=== PATIENT | female | born 1950 | race Two or more races ===

== ENCOUNTER 2023-07-14 13:51 | Inpatient (IN) | payer OTHER, MEDICAID ==
[~2023-07-14] VITALS: Ht 162.6 cm; Wt 71.7 kg
[2023-07-14 14:25] VITALS: PULSE 76; RESP 16; O2SAT 95
[2023-07-14 14:48] LABS: Basophils # (auto) 0 10 ^3/uL (0-0.2); Basophils % (auto) 0.4 % (0.0-2.0); Eosinophils # (auto) 0 10 ^3/uL (0-0.8); Eosinophils % (auto) 0.3 % (0.0-7.0); Hemoglobin 14.4 g/dL (12.2-16.2); Lymphocytes # (auto) 2.1 10 ^3/uL (0.4-5.4); Lymphocytes % (auto) 21.6 % (10.0-50.0); Mean Corpuscular Hemoglobin 30.4 pg (28.0-32.0); Mean Corpuscular Hgb Conc. 33.5 g/dL (32.0-36.0); Mean Corpuscular Volume 90.9 fL (80.0-100.0); Monocytes # (auto) 0.7 10 ^3/uL (0-1.3); Monocytes % (auto) 6.7 % (0.0-12.0); Red Blood Cells 4.73 10^6/uL (4.0-5.20); Red Cell Distribution Width 13.5 % (11.8-14.3); White Blood Cell 9.9 10^3/uL (4.4-10.8)
[2023-07-14] MEDS ORDERED: IOHEXOL 350 MG/ML 100ML IJ ONE ×2 (14:51→15:32)
[2023-07-14] MEDS ORDERED: ATORVASTATIN 20 MG TAB PO ONE (15:00)
[2023-07-14] MEDS ORDERED: ASPirin 325 MG TAB PO ONE (15:00)
[2023-07-14 15:07] LABS: Alanine Aminotransferase 24 U/L (7-40); Albumin 4.5 g/dL (3.2-4.8); Alkaline Phosphatase 115 U/L (46-116); Anion Gap 10 (5-15); Aspartate Aminotransferase 20 U/L (13-40); BUN/Creatinine Ratio 18.7 (10.0-20.0); Bilirubin, Total 0.5 mg/dL (0.2-1.0); Blood Urea Nitrogen 17 mg/dL (9-23); Calcium 9.4 mg/dL (8.7-10.4); Carbon Dioxide 23 mmol/L (20-30); Chloride 94 mmol/L (98-107); Glucose 268 mg/dL (74-106); Magnesium 1.9 mg/dL (1.6-2.6); Potassium 4.9 mmol/L (3.5-5.1); Sodium 127 mmol/L (136-145); Total Protein 7.2 g/dL (5.7-8.2)
[2023-07-14 15:35] LABS: INR 1.05 (0.9-1.15); Partial Thromboplastin Time 26.6 SEC (24.5-34.5)
[2023-07-14] MEDS ORDERED: MORPHINE SULFATE INJ 2 MG/ml SYRG IV PRN (15:45)
[2023-07-14] MEDS ORDERED: ACETAMINOPHEN 325 MG TAB PO PRN (15:45)
[2023-07-14] MEDS ORDERED: NITROGLYCERIN 0.4 MG SL TAB SL PRN (15:45)
[2023-07-14 16:13] LABS: Triglycerides 222 mg/dL (< 150)
[2023-07-14 16:14] LABS: LDL Cholesterol 74 mg/dL (< 100)
[2023-07-14 16:15] LABS: Cholesterol 139 mg/dL (< 200); HDL Cholesterol 44 mg/dL (40-59)
[2023-07-14] MEDS ORDERED: DEXTROSE (50%) 50ML SYRG IV PRN (16:15)
[2023-07-14] MEDS: SODIUM CHLORIDE 0.9% 1,000 ML IV SCH (18:01)
[2023-07-14] MEDS: InsuLIN REG 1unit/0.01ml Soln (100units/ml) SC SCH ×2 (18:02→23:43)
[2023-07-14] MEDS: ACCU-CHEK COMFORT CURVE STRIP VI SCH ×2 (18:02→23:34)
[2023-07-14 20:00] VITALS: PULSE 76; RESP 14; O2SAT 93
[2023-07-14 22:48] VITALS: BP 140/58; PULSE 81; RESP 15
[2023-07-14 23:22] VITALS: BP 154/81; PULSE 75; RESP 18; TEMP 98.1; O2SAT 95
[2023-07-14] MEDS: ATORVASTATIN 20 MG TAB PO SCH (23:24)
[2023-07-15] VITALS (7 sets, daily range): BP systolic 135–148; BP diastolic 61–88; PULSE 64–87; RESP 16–18; TEMP 97.7–98.5; O2SAT 93–96
[2023-07-15] MEDS: ACCU-CHEK COMFORT CURVE STRIP VI SCH ×4 (06:07→21:24)
[2023-07-15] MEDS: InsuLIN REG 1unit/0.01ml Soln (100units/ml) SC SCH ×4 (06:07→21:29)
[2023-07-15 07:07] LABS: Basophils # (auto) 0 10 ^3/uL (0-0.2); Basophils % (auto) 0.3 % (0.0-2.0); Eosinophils # (auto) 0.1 10 ^3/uL (0-0.8); Eosinophils % (auto) 1.1 % (0.0-7.0); Hematocrit 40.9 % (36.0-46.0); Hemoglobin 13.9 g/dL (12.2-16.2); Lymphocytes # (auto) 2.8 10 ^3/uL (0.4-5.4); Mean Corpuscular Hemoglobin 30.9 pg (28.0-32.0); Mean Corpuscular Hgb Conc. 33.9 g/dL (32.0-36.0); Mean Corpuscular Volume 91.1 fL (80.0-100.0); Monocytes # (auto) 0.8 10 ^3/uL (0-1.3); Monocytes % (auto) 8.8 % (0.0-12.0); Neutrophils % (auto) 57.8 % (37.0-80.0); Nucleated Red Blood Cells % 0.1 %; Red Blood Cells 4.49 10^6/uL (4.0-5.20); Red Cell Distribution Width 13.4 % (11.8-14.3); White Blood Cell 8.7 10^3/uL (4.4-10.8)
[2023-07-15 07:11] LABS: Alanine Aminotransferase 20 U/L (7-40); Alkaline Phosphatase 104 U/L (46-116); BUN/Creatinine Ratio 10.8 (10.0-20.0); Blood Urea Nitrogen 9 mg/dL (9-23); Calcium 9.4 mg/dL (8.5-10.1); Chloride 102 mmol/L (98-107); Glucose 105 mg/dL (74-106); Potassium 3.8 mmol/L (3.5-5.1); Sodium 137 mmol/L (136-145)
[2023-07-15 07:12] LABS: Aspartate Aminotransferase 21 U/L (13-40); Bilirubin, Total 0.8 mg/dL (0.2-1.0); Total Protein 6.6 g/dL (5.7-8.2)
[2023-07-15 07:25] LABS: Carbon Dioxide 25 mmol/L (20-30)
[2023-07-15 07:37] LABS: Anion Gap 10 (5-15)
[2023-07-15] MEDS: SODIUM CHLORIDE 0.9% 1,000 ML IV SCH (08:25)
[2023-07-15] MEDS: ENOXAPARIN SOD 40 MG/0.4 ML SYRINGE SC SCH (08:49)
[2023-07-15] MEDS: ASPirin 81 mg TAB PO SCH (08:49)
[2023-07-15] MEDS: ATORVASTATIN 20 MG TAB PO SCH (21:13)
[2023-07-15] MEDS: LORazepam 0.5 MG TAB PO PRN (21:52)
[2023-07-16] MEDS ORDERED: METF-371 PO (00:15)
[2023-07-16] MEDS ORDERED: ROSU20TA14 PO (00:16)
[2023-07-16] MEDS ORDERED: ASPI-543 PO (00:18)
[2023-07-16] MEDS ORDERED: BENA-36 PO (00:21)
[2023-07-16] MEDS: SODIUM CHLORIDE 0.9% 1,000 ML IV SCH ×2 (01:05→17:45)
[2023-07-16 05:00] VITALS: BP 139/68; PULSE 66; RESP 16; TEMP 98.4; O2SAT 98
[2023-07-16] MEDS: ACCU-CHEK COMFORT CURVE STRIP VI SCH ×4 (05:49→21:20)
[2023-07-16] MEDS: InsuLIN REG 1unit/0.01ml Soln (100units/ml) SC SCH ×4 (05:49→21:22)
[2023-07-16 08:00] VITALS: BP 165/78; PULSE 64; PULSE 87; RESP 20; TEMP 98.5; O2SAT 96
[2023-07-16] MEDS: LORazepam 0.5 MG TAB PO PRN (09:03)
[2023-07-16] MEDS: ASPirin 81 mg TAB PO SCH (09:04)
[2023-07-16] MEDS: ENOXAPARIN SOD 40 MG/0.4 ML SYRINGE SC SCH (09:04)
[2023-07-16 12:00] VITALS: BP 134/71; PULSE 73; RESP 17; TEMP 98.3; O2SAT 98
[2023-07-16] MEDS: LORazepam 0.5 MG TAB PO SCH ×2 (12:30→20:23)
[2023-07-16 16:00] VITALS: BP 140/57; PULSE 73; RESP 20; TEMP 98; O2SAT 95
[2023-07-16 20:00] VITALS: BP 120/59; PULSE 77; PULSE 78; RESP 17; O2SAT 98
[2023-07-16] MEDS: ATORVASTATIN 20 MG TAB PO SCH (21:13)
[2023-07-16 21:48] VITALS: BP 127/61; PULSE 74; RESP 16; TEMP 98.4; O2SAT 97
[2023-07-17] VITALS (8 sets, daily range): BP systolic 119–158; BP diastolic 55–79; PULSE 61–90; RESP 16–20; TEMP 97.4–98.2; O2SAT 94–99
[2023-07-17] MEDS: LORazepam 0.5 MG TAB PO SCH ×3 (04:20→22:06)
[2023-07-17] MEDS: ACCU-CHEK COMFORT CURVE STRIP VI SCH ×4 (06:16→22:20)
[2023-07-17] MEDS: InsuLIN REG 1unit/0.01ml Soln (100units/ml) SC SCH ×4 (06:19→22:00)
[2023-07-17] MEDS: ENOXAPARIN SOD 40 MG/0.4 ML SYRINGE SC SCH (10:01)
[2023-07-17] MEDS: ASPirin 81 mg TAB PO SCH (10:01)
[2023-07-17] MEDS: Glucerna Carbsteady SHAKE Vanilla 8oz PO SCH (18:00)
[2023-07-17] MEDS: ATORVASTATIN 20 MG TAB PO SCH (22:05)
[2023-07-18] MEDS: LORazepam 0.5 MG TAB PO SCH ×2 (04:30→13:17)
[2023-07-18 05:00] VITALS: BP 146/56; PULSE 67; RESP 17; TEMP 97.7; O2SAT 95
[2023-07-18] MEDS: ACCU-CHEK COMFORT CURVE STRIP VI SCH ×2 (05:59→12:05)
[2023-07-18] MEDS: InsuLIN REG 1unit/0.01ml Soln (100units/ml) SC SCH ×2 (06:05→11:30)
[2023-07-18 07:30] VITALS: PULSE 74; RESP 17; O2SAT 97
[2023-07-18 08:00] VITALS: PULSE 72
[2023-07-18] MEDS: Glucerna Carbsteady SHAKE Vanilla 8oz PO SCH ×2 (08:00→12:05)
[2023-07-18 09:00] VITALS: BP 164/57; PULSE 74; RESP 17; TEMP 98.5; O2SAT 97
[2023-07-18] MEDS: ASPirin 81 mg TAB PO SCH (09:57)
[2023-07-18] MEDS: ENOXAPARIN SOD 40 MG/0.4 ML SYRINGE SC SCH (09:58)
[2023-07-18] MEDS ORDERED: SERTRALINE HCL 50 MG TAB PO SCH (10:00)
[2023-07-18] MEDS ORDERED: BENAZEPRIL HCL 10 MG TAB PO ONE (10:15)
[2023-07-18] MEDS ORDERED: LORA-1121 PO (11:09)
[2023-07-18] MEDS ORDERED: SERT25TA84 PO (11:09)
[2023-07-18 12:43] VITALS: BP 140/68; PULSE 68; RESP 17; TEMP 98.4; O2SAT 94
[2023-07-19] MEDS ORDERED: BENAZEPRIL HCL 10 MG TAB PO SCH (10:00)
== END 2023-07-18 13:30 | disposition home or self-care (01) | DRG 66 ==
LOC: ER 13:51 → TELE 15:37 → TELE-WESTW 22:22
PROVIDERS: ADMIT Nurse Practitioner Family; ATTEND Family Medicine
DX: I63.89 Other cerebral infarction (principal); R47.01 Aphasia; R53.1 Weakness; E78.00 Pure hypercholesterolemia, unspecified; I10 Essential (primary) hypertension; F41.9 Anxiety disorder, unspecified; Z79.82 Long term (current) use of aspirin; Z79.899 Other long term (current) drug therapy; Z82.49 Family history of ischemic heart disease and other diseases of the circulatory system; Z86.73 Personal history of transient ischemic attack (TIA), and cerebral infarction without residual deficits; Z90.710 Acquired absence of both cervix and uterus; E11.65 Type 2 diabetes mellitus with hyperglycemia
CPT/HCPCS: 36415; 70450; 70496; 70551; 80053; 80061; 82962; 83036; 83735; 84484; 85025; 85610; 85730; 92523; 92610; 93306; 93886; 97110; 97116; 97163; 97530; G0378; J1815

== ENCOUNTER 2023-08-17 09:16 | Emergency (ER) | payer OTHER, MEDICAID ==
[~2023-08-17] VITALS: Ht 152.4 cm; Wt 68.2 kg
[~2023-08-17 09:16] MED LIST: ASPI-543 PO; BENA-36 PO; LORA-1121 PO; METF-371 PO; ROSU20TA14 PO; SERT25TA84 PO
[2023-08-17 10:15] LABS: Basophils # (auto) 0 10 ^3/uL (0-0.2); Basophils % (auto) 0.4 % (0.0-2.0); Eosinophils # (auto) 0.1 10 ^3/uL (0-0.8); Eosinophils % (auto) 1.7 % (0.0-7.0); Hematocrit 42.3 % (36.0-46.0); Lymphocytes # (auto) 2.3 10 ^3/uL (0.4-5.4); Lymphocytes % (auto) 32.7 % (10.0-50.0); Mean Corpuscular Hemoglobin 30.2 pg (28.0-32.0); Mean Corpuscular Hgb Conc. 33.2 g/dL (32.0-36.0); Monocytes # (auto) 0.5 10 ^3/uL (0-1.3); Monocytes % (auto) 7.5 % (0.0-12.0); Neutrophils # (auto) 4.1 10 ^3/uL (1.6-8.6); Neutrophils % (auto) 57.7 % (37.0-80.0); Nucleated Red Blood Cells % 0.1 %; Red Blood Cells 4.64 10^6/uL (4.0-5.20); Red Cell Distribution Width 13.6 % (11.8-14.3); White Blood Cell 7.1 10^3/uL (4.4-10.8)
[2023-08-17 10:30] LABS: Alanine Aminotransferase 21 U/L (7-40); Albumin 4.4 g/dL (3.2-4.8); Alkaline Phosphatase 91 U/L (46-116); Anion Gap 6 (5-15); Aspartate Aminotransferase 16 U/L (13-40); BUN/Creatinine Ratio 18.8 (10.0-20.0); Blood Urea Nitrogen 16 mg/dL (9-23); Calcium 9.4 mg/dL (8.7-10.4); Carbon Dioxide 25 mmol/L (20-30); Chloride 107 mmol/L (98-107); Glucose 116 mg/dL (74-106); Magnesium 1.9 mg/dL (1.6-2.6); Potassium 4.8 mmol/L (3.5-5.1); Sodium 138 mmol/L (136-145)
[2023-08-17 10:31] LABS: Bilirubin, Total 0.5 mg/dL (0.2-1.0); Total Protein 6.9 g/dL (5.7-8.2)
[2023-08-17 10:37] LABS: INR 1.05 (0.9-1.15); Partial Thromboplastin Time 27.1 SEC (24.5-34.5)
[2023-08-17] MEDS ORDERED: PROC10TA6 PO (10:57)
[2023-08-17] MEDS ORDERED: DIPH25CA51 PO (10:57)
[2023-08-17 11:10] VITALS: BP 136/62; PULSE 72; RESP 18; TEMP 98.1; O2SAT 96
== END 2023-08-17 11:12 | disposition home or self-care (01) ==
LOC: ER 09:16
DX: R51.9 Headache, unspecified (principal); R11.2 Nausea with vomiting, unspecified; R07.89 Other chest pain; I10 Essential (primary) hypertension; E11.9 Type 2 diabetes mellitus without complications; E78.5 Hyperlipidemia, unspecified; Z86.73 Personal history of transient ischemic attack (TIA), and cerebral infarction without residual deficits; Z90.710 Acquired absence of both cervix and uterus
CPT/HCPCS: 36415; 70450; 71045; 80053; 83735; 83880; 84484; 85025; 85610; 85730; 93005

== ENCOUNTER 2023-08-25 02:51 | Emergency (ER) | payer OTHER, MEDICAID ==
[~2023-08-25] VITALS: Ht 152.4 cm; Wt 68.2 kg
[~2023-08-25 02:51] MED LIST changes: +DIPH25CA51 PO; +PROC10TA6 PO
[2023-08-25 03:22] VITALS: BP 157/71; RESP 18; TEMP 97.9; O2SAT 95
[2023-08-25 04:28] LABS: Chloride 104 mmol/L (98-107); Potassium 4.3 mmol/L (3.5-5.1); Sodium 136 mmol/L (136-145)
[2023-08-25 04:29] LABS: Anion Gap 7 (5-15); Calcium 9.6 mg/dL (8.7-10.4); Carbon Dioxide 25 mmol/L (20-30)
[2023-08-25 04:30] LABS: Basophils # (auto) 0 10 ^3/uL (0-0.2); Basophils % (auto) 0.2 % (0.0-2.0); Eosinophils # (auto) 0.1 10 ^3/uL (0-0.8); Eosinophils % (auto) 0.6 % (0.0-7.0); Hematocrit 41.2 % (36.0-46.0); Hemoglobin 13.7 g/dL (12.2-16.2); Lymphocytes % (auto) 17.5 % (10.0-50.0); Mean Corpuscular Hemoglobin 30.5 pg (28.0-32.0); Mean Corpuscular Hgb Conc. 33.2 g/dL (32.0-36.0); Mean Corpuscular Volume 91.9 fL (80.0-100.0); Monocytes # (auto) 0.8 10 ^3/uL (0-1.3); Neutrophils # (auto) 8.4 10 ^3/uL (1.6-8.6); Neutrophils % (auto) 74.7 % (37.0-80.0); Red Blood Cells 4.49 10^6/uL (4.0-5.20); Red Cell Distribution Width 13.9 % (11.8-14.3); White Blood Cell 11.3 10^3/uL (4.4-10.8)
[2023-08-25 04:34] LABS: BUN/Creatinine Ratio 15.7 (10.0-20.0); Blood Urea Nitrogen 13 mg/dL (9-23); Glucose 161 mg/dL (74-106)
[2023-08-25 05:16] LABS: Urine Bacteria NONE SEEN /hpf (None Seen); Urine Blood Negative /uL (Negative); Urine Clarity Clear (Clear); Urine Color Colorless (Yellow); Urine Protein, UAD Negative (Negative); Urine Specific Gravity 1.007 (1.001-1.035); Urine Urobilinogen Normal (Negative); Urine WBC <1 /hpf (0 - 5)
[2023-08-25 06:14] VITALS: PULSE 71
== END 2023-08-25 06:26 | disposition home or self-care (01) ==
LOC: ER 02:51
DX: R53.1 Weakness (principal); R51.9 Headache, unspecified; E11.9 Type 2 diabetes mellitus without complications; E78.5 Hyperlipidemia, unspecified; I10 Essential (primary) hypertension; Z90.710 Acquired absence of both cervix and uterus; Z86.73 Personal history of transient ischemic attack (TIA), and cerebral infarction without residual deficits
CPT/HCPCS: 36415; 70450; 71045; 80048; 81001; 82962; 83880; 84484; 85025; 93005

== ENCOUNTER 2024-11-14 08:10 | Day surgery (SDC) | payer OTHER, MEDICAID ==
[2024-11-11 11:20] LABS: Urine Bacteria None Seen /hpf (None Seen)
[2024-11-11 11:34] LABS: Basophils # (auto) 0.1 10 ^3/uL (0-0.2); Eosinophils # (auto) 0.1 10 ^3/uL (0-0.8); Eosinophils % (auto) 1.3 % (0.0-7.0); Hematocrit 41.3 % (36.0-46.0); Hemoglobin 14.1 g/dL (12.2-16.2); Lymphocytes # (auto) 2.1 10 ^3/uL (0.4-5.4); Lymphocytes % (auto) 32.2 % (10.0-50.0); Mean Corpuscular Hemoglobin 31.2 pg (28.0-32.0); Mean Corpuscular Hgb Conc. 34.1 g/dL (32.0-36.0); Mean Corpuscular Volume 91.4 fL (80.0-100.0); Monocytes # (auto) 0.5 10 ^3/uL (0-1.3); Monocytes % (auto) 8.3 % (0.0-12.0); Neutrophils # (auto) 3.8 10 ^3/uL (1.6-8.6); Neutrophils % (auto) 57.2 % (37.0-80.0); Platelet Count (auto) 359 10^3/uL (140-450); Red Blood Cells 4.52 10^6/uL (4.0-5.20); Red Cell Distribution Width 13.7 % (11.8-14.3); White Blood Cell 6.6 10^3/uL (4.4-10.8)
[2024-11-11 11:40] LABS: Urine Blood Negative /uL (Negative); Urine Clarity Clear (Clear); Urine Color Colorless (Yellow); Urine Protein, UAD Negative (Negative); Urine Specific Gravity 1.009 (1.001-1.035); Urine Squamous Epithelial Cell None Seen /hpf (<5); Urine Urobilinogen Normal (Negative); Urine WBC < 1 /HPF (0-5); Urine pH 6.5 (5.0-9.0)
[2024-11-11 11:41] LABS: INR 1.01 (0.9-1.15); Partial Thromboplastin Time 25.5 SEC (24.5-34.5); Prothrombin Time 10.7 sec (9.3-11.8)
[2024-11-11 11:53] LABS: Alanine Aminotransferase 17 U/L (7-40); Albumin 4.5 g/dL (3.2-4.8); Alkaline Phosphatase 69 U/L (46-116); Anion Gap 10 (5-15); Aspartate Aminotransferase 13 U/L (13-40); BUN/Creatinine Ratio 23.6 (10.0-20.0); Bilirubin, Total 0.6 mg/dL (0.2-1.0); Blood Urea Nitrogen 21 mg/dL (9-23); Calcium 9.8 mg/dL (8.7-10.4); Carbon Dioxide 25 mmol/L (20-31); Chloride 104 mmol/L (98-107); Glucose 120 mg/dL (74-106); Potassium 4.4 mmol/L (3.5-5.1); Sodium 139 mmol/L (136-145); Total Protein 7.3 g/dL (5.7-8.2)
[~2024-11-14] VITALS: Ht 152.4 cm; Wt 67.1 kg
[2024-11-14] MEDS ORDERED: ONDANSETRON HCL 4 MG/2 ML VIAL ONE (11:04)
[2024-11-14] MEDS ORDERED: fentaNYL CITRATE 100 MCG/2 ML VL ONE (11:04)
[2024-11-14] MEDS ORDERED: PROPOFOL 10 MG/ML 20 ML IV ONE (11:04)
[2024-11-14] MEDS ORDERED: LIDOCAINE 2% (LOCAL ANESTH.) PF 5ml SDV ONE (11:04)
[2024-11-14] MEDS ORDERED: GLYCOPYRROLATE 0.2 MG/ML 1ML VIAL ONE (11:04)
--- NOTE | 2024-11-14 11:09 | DVHHP2 ---
GI H&P Pre-Op Assessment Date: 11/14/24 Chief complaint: colon cancer screening, abdominal pain, nausea and vomiting HPI: per clinic note Past medical history: per clinic note Past surgical history: per clinic note Family history: per clinic note Physical exam: General: NAD, AAOX3 HEENT: PERRL, no scleral icterus, normal hearing, gums without lesions or bleeding, oropharynx clear without erythema or exudate. Neck: Supple without enlargement of the thyroid, or lymphadenopathy. Chest: Normal size and shape, no tenderness, lung santa clear to auscultation and percussion, nonlabored breathing. Heart: RRR, no murmur Abdomen: non-distended, no tenderness to palpation, +BS, no hepatosplenomegaly Extremities: no edema Neurological: CN II-XII intact, sensation intact in all extremities, 5+ strength in all extremities Skin: No rashes, No jaundice Assessment: - colon cancer screening, abdominal pain, nausea and vomiting Plan: - EGD - Colonoscopy - Risks (bleeding, infection, perforation, reaction to sedation medications and cardiopulmonary arrest) and benefit of the procedure were explained to patient. Patient agrees to undergo the procedure. MELONIE ROSAS MD November 14, 2024 11:09
[2024-11-14 11:38] VITALS: RESP 14; TEMP 97.6; O2SAT 96
--- NOTE | 2024-11-14 11:40 | DVHOP2 ---
Operative Report DATE OF OPERATION: 11/14/24 PROCEDURE: Upper Endoscopy. PREOPERATIVE INDICATION: The patient is a 73 -year-old female undergoing endoscopy for upper abdominal pain, nausea, vomiting, heartburn. POSTOPERATIVE DIAGNOSES: 1. Gastritis PROCEDURE PERFORMED BY: Loc Dickinson SCOPE: Olympus videoendoscope. ASA CLASS: 3 PREOPERATIVE MEDICATIONS: MAC with Dr Baires PROCEDURE IN DETAIL: After obtaining an informed consent, the patient was placed on left lateral decubitus position. The patient was then sedated with the above medications. A bite block was placed between her teeth. The endoscope was then passed through the oropharynx, into the esophagus, and through the stomach and pylorus up to the second and third part of the duodenum. The duodenum was normal appearance. There was gastritis. Gastric biopsies were obtained using cold forceps. The GE junction was normal in appearance at 37 cm. The esophagus was normal in appearance. The endoscope was then withdrawn. The patient tolerated the procedure well without difficulty. COMPLICATIONS : None SPECIMENS: Gastric biopsies DISPOSITION: D/C to home PLAN: 1. Await for biopsy result 2. Continue with Protonix. LOC DICKINSON MD November 14, 2024 11:40
--- NOTE | 2024-11-14 11:41 | DVHDS2 ---
Physician Discharge Progress N Final Diagnosis: Gastritis Colon polyp, diverticulosis Operations or Procedures: Operations or Procedures EGD with cold biopsy Colonoscopy with cold biopsy polypectomy Condition on Discharge: Good Disposition: Home Discharge Instructions: Diet: Regular Activity: No Restrictions, As Tolerated Medications: Resume with previous home medications Follow Up Care: Discharge Statement: "Patient was advised to return to the ER or call 911 if any headaches, dizziness, shortness of breath, chest pain, abdominal pain, bleeding, fevers, or worsening of medical condition. Patient was counseled about treatment plan, medications, possible side effects, patientverbalized understanding. All questions were answered to the best of my ability. This discharge took greater then 30 minutes in planning, reviewing documentation, counseling the patient, and discussing with other team members." MELONIE ROSAS MD November 14, 2024 11:41
--- NOTE | 2024-11-14 11:41 | DVHOP2 ---
Operative Report DATE OF OPERATION: 11/14/24 PROCEDURE: Colonoscopy. PREOPERATIVE INDICATION: The patient is a 73 -year-old female undergoing colonoscopy for colon cancer screening. POSTOPERATIVE DIAGNOSES: 1. 2 mm right colon polyp was removed with cold forceps. 2. Diverticulosis in left colon. PROCEDURE PERFORMED BY: Loc Dickinson M.D. SCOPE: Olympus videocolonoscope. ASA CLASS: 3 PREOPERATIVE MEDICATIONS: MAC with Dr Baires PROCEDURE IN DETAIL: After obtaining an informed consent, the patient was placed on left lateral decubitus position. She was then sedated with the above medications. A rectal examination was performed that was normal. The colonoscope was then passed through the anus into the rectosigmoid and through the descending, transverse, and ascending colon up to the cecum with visualization of the appendiceal orifice, base of the cecum and the ileocecal valve. A 2 mm right colon polyp was removed with biopsy forceps. There was diverticulosis in left colon. The colonoscope was then withdrawn. The patient tolerated the procedure well without difficulty. WITHDRAWAL TIME: 6 minutes QUALITY OF THE PREP: Silt Bowel Prep score: 6 COMPLICATIONS : None SPECIMENS: Colon polyp DISPOSITION: D/C to home PLAN: 1. Repeat colonoscopy base on biopsy result LOC DICKINSON MD November 14, 2024 11:41
[2024-11-14 12:00] VITALS: BP 124/58; PULSE 76; RESP 15; O2SAT 97
== END 2024-11-14 12:08 | disposition home or self-care (01) ==
LOC: GI 08:10
PROVIDERS: ATTEND Internal Medicine Gastroenterology
DX: R11.2 Nausea with vomiting, unspecified (principal); D12.2 Benign neoplasm of ascending colon; K63.5 Polyp of colon; K57.30 Diverticulosis of large intestine without perforation or abscess without bleeding; K29.50 Unspecified chronic gastritis without bleeding; R12 Heartburn; R10.10 Upper abdominal pain, unspecified; I10 Essential (primary) hypertension; E11.9 Type 2 diabetes mellitus without complications; E03.9 Hypothyroidism, unspecified; M81.0 Age-related osteoporosis without current pathological fracture; Z86.73 Personal history of transient ischemic attack (TIA), and cerebral infarction without residual deficits; Z90.711 Acquired absence of uterus with remaining cervical stump; Z98.890 Other specified postprocedural states
CPT/HCPCS: 36415; 43239; 45380; 80053; 81001; 82962; 85025; 85610; 85730; 88305; 88312; 88342; J2003; J2405; J2704; J3010; J7030

== ENCOUNTER 2024-12-29 08:40 | Inpatient (IN) | payer OTHER, MEDICAID ==
[~2024-12-29] VITALS: Ht 154.9 cm; Wt 65.1 kg
--- NOTE | 2024-12-29 09:04 | ED.PDOC ---
History of Present Illness HPI Comments 74-year-old female presents with a chief complaint of body aches, nausea, and hypotension. Patient states that she is feeling pain all over her body and rates her pain a 10/10. Patient also had low blood pressure at home with a reading of 95 systolic. BP in triage was 135/99. Patient denies any vomiting, but is nauseous. Chief Complaint: Body Pain Time Seen by MD: 08:55 Primary Care Provider: DAVIS Pastor Notes: Medications, Allergies Allergies: Coded Allergies: NO KNOWN ALLERGIES (Unverified , 07/14/23) Home Meds Active Scripts Diphenhydramine Hcl (BENADRYL CAPSULE) 25 Mg Cp, 25 MG PO Q8HP PRN for 4 Days, #12 CAP Prov:BUD NAIR MD 08/17/23 Prochlorperazine Maleate (Compazine) 10 Mg Tb, 1 TAB PO Q8HP PRN for 4 Days, #12 TAB 3 Refills Prov:BUD NAIR MD 08/17/23 Sertraline Hcl (Zoloft) 25 Mg Tab, 1 TAB PO DAILY, #90 TAB 2 Refills Prov:PHYLLIS MILLARD MD 07/18/23 Lorazepam (ATIVAN TABLET) 0.5 Mg Tb, 1 TAB PO TID, #90 TAB Prov:PHYLLIS MILLARD MD 07/18/23 Reported Medications Benazepril Hcl (Benazepril Hcl) 20 Mg Tab, 20 MG PO DAILY for 30 Days, MG 07/16/23 Aspirin (Aspir-Low) 81 Mg Tab, 81 MG PO DAILY for 30 Days, MG 07/16/23 Rosuvastatin Calcium (Crestor) 20 Mg Tab, 1 TAB PO DAILY, #30 TAB 5 Refills 07/16/23 Metformin Hydrochloride (Metformin Hcl) 850 Mg Tab, 850 MG PO for 30 Days, MG 07/16/23 Information Source: Patient Mode of Arrival: Ambulatory Severity: Moderate Timing: Hours Duration: Since onset Prehospital treatment: None Past Medical History PAST MEDICAL HISTORY: CVA, DM, High Lipids, HTN Surgical History: Hysterectomy TRANSMITTER OPERATOR History: No Pertinent TRANSMITTER OPERATOR History Family History Family History: Reviewed,noncontributory to illness Social History Smoker: Non-Smoker Alcohol: Denies ETOH Use Drugs: Denies Drug Use Lives In: Home Constitutional: reports: others (BODY ACHES); denies: chills, diaphoresis, fatigue, fever, malaise, sweats, weakness EENTM: denies: blurred vision, double vision, ear bleeding, ear discharge, ear drainage, ear pain, ear ringing, eye pain, eye redness, hearing loss, mouth p ain, mouth swelling, nasal discharge, nose bleeding, nose congestion, nose pain, photophobia, tearing, throat pain, throat swelling, voice changes, others Respiratory: denies: cough, hemoptysis, orthopnea, SOB at rest, shortness of br eath, SOB with excertion, stridor, wheezing, others Cardiovascular: denies: chest pain, dizzy spells, diaphoresis, Dyspnea on exertion, edema, irregular heart beat, left arm pain, lightheadedness, palpitations, PND, syncope, others Gastrointestinal: reports: nausea; denies: abdomen distended, abdominal pain, blood streaked bowels, constipated, diarrhea, dysphagia, difficulty swallowing, hematemesis, melena, poor appetite, poor fluid intake, rectal bleeding, rectal pain, vomiting, others Genitourinary: denies: abnormal vagina bleeding, burning, dyspareunia, dysuria, flank pain, frequency, hematuria, incontinence, pain, , vagina discharge, urgency, others Neurological: denies: dizziness, fainting, headache, left sided numbness, left sided weakness, numbness, paresthesia, pre-existing deficit, right sided numbness, right sided weakness, seizure, speech problems, tingling, tremors, weakness, others Musculoskeletal: denies: back pain, gout, joint pain, joint swelling, muscle pain, muscle stiffness, neck pain, others Integumetry: denies: bruises, change in color, change in hair/nails, dryness, laceration, lesions, lumps, rash, wounds, others Allergic/Immunocompromised: denies: Difficulty Healing, Frequent Infections, Hives, Itching, others Hematologic/Lymphatic: denies: anemia, blood clots, easy bleeding, easy bruis ing, swollen glands, others Endocrine: denies: excessive hunger, excessive sweating, excessive thirst, exc essive urination, flushing, intolerance to cold, intolerance to heat, unexplained weight gain, unexplained weight loss, others Psychiatric: denies: anxiety, bipolar disorder, depression, hopeless, panic disorder, schizophrenia, sleepless, suicidal, others All Other Systems: Reviewed and Negative Physical Exam General Appearance: Moderate Distress, Normal HEENT: Normal ENT Inspection, Pharynx Normal, TMs Normal Neck: Full Range of Motion, Non-Tender, Normal, Normal Inspection Respiratory: Chest Non-Tender, Lungs Clear, No Accessory Muscle Use, No Respiratory Distress, Normal Breath Sounds Cardiovascular: No Edema, No JVD, No Murmur, No Gallop, Normal Peripheral Pulses, Regular Rate/Rhythm Breast Exam: Deferred Gastrointestinal: No Organomegaly, Non Tender, No Pulsatile Mass, Normal Bowel Sounds, Soft Genitalia: Deferred Pelvic: Deferred Rectal: Deferred Extremities: No calf tenderness, Normal capillary refill, Normal inspection, Normal range of motion, Non-tender, No pedal edema Musculoskeletal : Apperance: Normal Neurologic: Alert, coating inspector II-XII nml as Tested, No Motor Deficits, Normal Affect, Normal Mood, No Sensory Deficits Cerebellar Function: NOT DONE Reflexes: NOT DONE Skin: Dry, Normal Color, Warm Peripheral Pulses: 3+ Radial (R), 3+ Radial (L) Lymphatic: No Adenopathy Was a procedure done? Was a procedure done?: No Differential Dx Considerations may include: Anemia Electrolyte imbalance X-Ray, Labs, Meds, VS Vital Signs Date Time Temp Pulse Resp B/P (MAP) Pulse Ox O2 Delivery O2 Flow Rate FiO2 12/29/24 09:13 79 16 95 Room Air* 0 21 12/29/24 08:45 99.7 79 16 104/54 (71) 95 99.7 Lab Test 12/29/24 08:52 Range/Units POC Glucose 185 H 70-106 mg/dl Patient alert. His history of hypertension diabetes. Feeling weak. Saturation pristine on room air. Mild fever. Hypotensive. Possible sepsis. Abdomen is soft. She is feeling weak. Explained to the family. Continue to monitor. EKG reviewed does not show any acute changes. Time of 1ST Reevaluation: 09:25 Reevaluation 1ST: Unchanged Patient Education/Counseling: Diagnosis, Treatment, Need For Follow Up Family Education/Counseling: No Family Present SEPSIS Sepsis Screen Date sepsis recognized/suspect: Dec 29, 2024 Time Sepsis recognized/suspect: 0857 Recent Procedure: No On Antibiotic Therapy: No Respiratory Rate >20: No Heart Rate >90: No Temp<36 C (96.8 F) or >38.3 C: No SBP <90 or MAP <65 mmHG: No New Acute Mental Status Change: No Is the patient on CPAP, BIPAP,: No Physician Orders Complete Blood Count (12/29/24 09:18) Comprehensive Metabolic Panel (12/29/24 09:18) PTPTT (12/29/24 09:18) Urinalysis (12/29/24 09:18) Chest Portable (12/29/24 09:18) Accucheck (12/29/24 09:18) Lactated Ringer's (12/29/24 09:30) Blood Culture (12/29/24 09:18) Vancomycin 1gm/200ml Pm (12/29/24 09:30) Lactic Acid W/ Reflex Order (12/29/24 10:00) Cefepime 1gm/ 50ml (Maxipime 1gm/50ml) (12/29/24 14:00) Notify Md If Map <65 Or Bp<90 (12/29/24 09:18) If Map<65 Start Vasopressor (12/29/24 09:18) Vital Signs Date Time Temp Pulse Resp B/P (MAP) Pulse Ox O2 Delivery O2 Flow Rate FiO2 12/29/24 09:13 79 16 95 Room Air* 0 21 12/29/24 08:45 99.7 79 16 104/54 (71) 95 99.7 Departure 1 Departure Time of Disposition: 09:23 Impression: Primary Impression: Sepsis, unspecified organism Qualified Codes: A41.9 - Sepsis, unspecified organism Additional Impressions: HTN (hypertension) Qualified Codes: I10 - Essential (primary) hypertension Uncontrolled diabetes mellitus Qualified Codes: E13.65 - Other specified diabetes mellitus with hyperglycemia Disposition: 09 ADMITTED INPATIENT Admit to: Med Surg Condition: Guarded Critical Care Note Critical Care Time?: No Stability Stability form required: No Heart Score Heart Score: Heart Score Response (Comments) Value History Slightly Suspicious 0 EKG Normal 0 Age >65 2 Risk Factors >3 or Hx ASHD 2 Troponin Normal limit 0 Total 4 I personally scribed for ALEXANDRIA MCKEON MD ([email or web address]) on 12/29/24 at 09:03. Electronically submitted by Gunner Panda ([email or web address]). ALEXANDRIA MCKEON MD Dec 29, 2024 09:03
[2024-12-29 09:13] VITALS: PULSE 79; RESP 16; O2SAT 95
[2024-12-29 09:29] LABS: Urine Protein, UAD Negative (Negative)
--- NOTE | 2024-12-29 10:02 | DVH ---
AP portable chest CLINICAL INDICATION: sob Comparison: 08/25/2023 FINDINGS: Heart size is borderline with a left ventricular configuration. Aorta tortuous. There are n o infiltrates or effusions. There is a radiopaque foreign body that appears like a needle or pin over lying the left peripheral mid lung zone.. IMPRESSION: 1. There is no acute cardiopulmonary pathology. Question of foreign body overlying the left chest. Rec ommend lateral view to confirm position
[2024-12-29 10:10] LABS: Hematocrit 41.8 % (36.0-46.0); Hemoglobin 14.1 g/dL (12.2-16.2); Mean Corpuscular Hemoglobin 30.4 pg (28.0-32.0); Mean Corpuscular Volume 90.2 fL (80.0-100.0); Nucleated Red Blood Cells % 0.0 %
[2024-12-29 10:26] LABS: INR 0.98 (0.9-1.15); Partial Thromboplastin Time 28.5 SEC (24.5-34.5); Prothrombin Time 10.4 sec (9.3-11.8)
[2024-12-29 10:27] LABS: Alanine Aminotransferase 15 U/L (7-40); Albumin 4.5 g/dL (3.2-4.8); Alkaline Phosphatase 63 U/L (46-116); Anion Gap 11 (5-15); BUN/Creatinine Ratio 15.7 (10.0-20.0); Blood Urea Nitrogen 16 mg/dL (9-23); Calcium 9.5 mg/dL (8.7-10.4); Carbon Dioxide 23 mmol/L (20-31); Chloride 100 mmol/L (98-107); Potassium 4.3 mmol/L (3.5-5.1); Total Protein 7.1 g/dL (5.7-8.2)
[2024-12-29 10:31] LABS: Bilirubin, Total 0.2 mg/dL (0.2-1.0); Glucose 136 mg/dL (74-106); Sodium 134 mmol/L (136-145)
[2024-12-29 10:34] LABS: Lactic Acid w/Reflex 3.2 mmol/L (0.4-2.0)
[2024-12-29] MEDS: LACTATED RINGER'S 1,450 ML IV ONE (11:48)
[2024-12-29] MEDS: VANCOMYCIN 1GM/200ML PM 200 ML IV ONE (11:49)
[2024-12-29] MEDS: ACETAMINOPHEN 500 MG TAB or CAP PO ONE (12:09)
[2024-12-29] MEDS: CEFEPIME 1GM/ 50ML 50 ML IV ONE (12:10)
[2024-12-29] MEDS ORDERED: CEFEPIME 1GM/ 50ML 50 ML IV SCH (14:00)
--- NOTE | 2024-12-29 14:36 | DVH ---
XY CHEST TWO VIEWS ROUTINE CLINICAL HISTORY: FB, lateral view COMPARISON: None TECHNIQUE: Frontal and lateral view of the chest was obtained FINDINGS: Lines and Tubes: None Lungs: No focal consolidation. Pleura: No effusion. No pneumothorax. Cardiomediastinal contours: Unremarkable Bones: No acute osseous abnormality. IMPRESSION: 1. No acute cardiopulmonary disease. 2. No radiopaque foreign bodies
[2024-12-29] MEDS ORDERED: ACETAMINOPHEN 325 MG TAB PO PRN (15:15)
[2024-12-29] MEDS ORDERED: DEXTROSE (50%) 50ML SYRG IV PRN ×2 (15:15)
[2024-12-29] MEDS ORDERED: ONDANSETRON HCL 4 MG/2 ML VIAL IV PRN (15:15)
[2024-12-29] MEDS ORDERED: MORPHINE SULFATE INJ 2 MG/ml SYRG IV PRN (15:15)
[2024-12-29] MEDS ORDERED: VANCOMYCIN PER PHARMACY 0 MG IV SCH (15:15)
[2024-12-29] MEDS ORDERED: HYDROcodone-ACET 5/325MG TAB PO PRN (15:15)
[2024-12-29 15:20] LABS: COVID19 ANTIGEN SOFIA FIA NEGATIVE (NEGATIVE)
[2024-12-29] MEDS: SODIUM CHLORIDE 0.9% 1,000 ML IV SCH (15:31)
--- NOTE | 2024-12-29 15:31 | DVHHP2 ---
History of Present Illness Reason for Visit: Body pain History of Present Illness A 74-year-old Divehi speaking female presents to the emergency department accompanied by her son with complaint of generalized body aches, nausea, subjective fever, and reported low blood pressure that began earlier today. According to her son, a systolic blood pressure of 95 mmHg was noted at home this morning. In the ED, her initial blood pressure was 135/99 mm Hg. The patient denies vomiting but continues to feel nauseated. Laboratory evaluation revealed an elevated lactic acid, leukopenia with WBC count of 3.5, neutrophilic predominance 86. 9% and low lymphocytes 6.9%. Urinalysis was negative, and chest x-ray shows no acute pathology. 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 Past Social History The patient lives at home, denies smoking, alcohol or illicit drugs abuse. Review of Systems Constitutional: Yes: Fever, Other (Body aches); No: Chills, Sweats, Weakness, Malaise Eyes: No: Pain, Vision change, Conjunctivae inflammation, Eyelid inflammation, Other, Redness ENT: No: Ear pain, Ear discharge, Nose pain, Nose discharge, Nose congestion, Mouth pain, Mouth swelling, Throat pain, Throat swelling, Other Respiratory: No: Cough, Dry, Shortness of breath, SOB with excertion, Wheezing, Hemoptysis, Pleuritic Pain, Sputum, Wheezing, Other Cardiovascular: No: Chest Pain, Palpitations, Orthopnea, Paroxysmal Noc. Dyspnea, Edema, Lt Headedness, Other Gastrointestinal: Nausea; No: Vomiting, Abdominal Pain, Diarrhea, Constipation, Melena, Hematochezia, Other Genitourinary: No Dysuria, No Frequency, No Incontinence, No Hematuria, No Retention, No Other Musculoskeletal: No: other, neck pain, shoulder pain, arm pain, back pain, hand pain, leg pain, foot pain Skin: No: Rash, Lesions, Jaundice, Bruising, Other Allergies: Coded Allergies: NO KNOWN ALLERGIES (Unverified , 07/14/23) Medications Current Medications Medications Dose Ordered Sig/Dafne Route Start Time Stop Time Status Last Admin Dose Admin Cefepime HCl 50 ml @ 12.5 mls/hr Q12HR IV 12/29/24 22:00 Sodium Chloride 1,000 ml @ 60 mls/hr [id number] IV 12/29/24 15:15 UNV Acetaminophen/ Hydrocodone Bitart 1 tab Q4HP PRN PO 12/29/24 15:15 UNV Ondansetron HCl 4 mg Q4HP PRN IV 12/29/24 15:15 UNV Enoxaparin Sodium 40 mg DAILY SC 12/30/24 10:00 UNV Acetaminophen 650 mg Q6HP PRN PO 12/29/24 15:15 UNV Morphine Sulfate 2 mg Q4HPRN PRN IV 12/29/24 15:15 UNV Diagnostic Test (Pha) 1 strip ACHS 12/29/24 17:00 UNV Insulin Human Regular ACHS SC 12/29/24 17:00 UNV Dextrose 50 ml UD PRN IV 12/29/24 15:15 UNV Vancomycin HCl 0 ml @ 0 mls/hr UD IV 12/29/24 15:15 UNV Exam Vital Signs Vital Signs Date Time Temp Pulse Resp B/P (MAP) Pulse Ox O2 Delivery O2 Flow Rate FiO2 12/29/24 13:19 98.5 12/29/24 12:51 77 19 125/40 (68) 95 12/29/24 10:16 Room Air 12/29/24 09:13 0 21 General Appearance: Alert, Oriented X3, Other (Elderly female, alert but mildly ill appearing.) HEENT: Atraumatic, PERRLA, EOMI Respiratory: Clear to auscultation, Normal air movement Cardiovascular: Regular rate, Normal S1, Normal S2 Abdominal: Normal bowel sounds, Soft, No tenderness Extremities: No clubbing, No cyanosis, No edema, Normal pulses Skin: No rashes, No breakdown, No significant lesion Neuro: Normal gait, Normal speech, Strength at 5/5 X4 ext, Normal tone Psych/Mental Status: Mental status NL Labs/Xrays Labs Test 12/29/24 14:35 12/29/24 11:45 12/29/24 09:57 12/29/24 08:55 Range/Units Lactic Acid Level 2.7 *H 0.4-2.0 mmol/L White Blood Count 3.5 L 4.4-10.8 10^3/uL Red Blood Count 4.64 4.0-5.20 10^6/uL Hemoglobin 14.1 12.2-16.2 g/dL Hematocrit 41.8 36.0-46.0 % Mean Corpuscular Volume 90.2 80.0-100.0 fL Mean Corpuscular Hemoglobin 30.4 28.0-32.0 pg Mean Corpuscular Hemoglobin Concent 33.7 32.0-36.0 g/dL Red Cell Distribution Width 13.9 11.8-14.3 % Platelet Count 245 140-450 10^3/uL Mean Platelet Volume 7.3 6.9-10.8 fL Neutrophils (%) (Auto) 86.9 H 37.0-80.0 % Lymphocytes (%) (Auto) 6.9 L 10.0-50.0 % Monocytes (%) (Auto) 6.0 0.0-12.0 % Eosinophils (%) (Auto) 0.0 0.0-7.0 % Basophils (%) (Auto) 0.2 0.0-2.0 % Neutrophils # (Auto) 3.1 1.6-8.6 10 ^3/uL Lymphocytes # (Auto) 0.2 L 0.4-5.4 10 ^3/uL Monocytes # (Auto) 0.2 0-1.3 10 ^3/uL Eosinophils # (Auto) 0 0-0.8 10 ^3/uL Basophils # (Auto) 0 0-0.2 10 ^3/uL Nucleated Red Blood Cells 0.0 % Prothrombin Time 10.4 9.3-11.8 sec Prothrombin Time INR 0.98 0.9-1.15 Activated Partial Thromboplast Time 28.5 24.5-34.5 SEC Sodium Level 134 L 136-145 mmol/L Potassium Level 4.3 3.5-5.1 mmol/L Chloride Level 100 98-107 mmol/L Carbon Dioxide Level 23 20-31 mmol/L Anion Gap 11 5-15 Blood Urea Nitrogen 16 9-23 mg/dL Creatinine 1.02 0.550-1.02 mg/dL Glomerular Filtration Rate Calc 57 >90 mL/min BUN/Creatinine Ratio 15.7 10.0-20.0 Serum Glucose 136 H 74-106 mg/dL Calcium Level 9.5 8.7-10.4 mg/dL Total Bilirubin 0.2 0.2-1.0 mg/dL Aspartate Amino Transferase (AST) 21 <34 U/L Alanine Aminotransferase (ALT) 15 7-40 U/L Alkaline Phosphatase 63 46-116 U/L Total Protein 7.1 5.7-8.2 g/dL Albumin 4.5 3.2-4.8 g/dL Urine Color Yellow Yellow Urine Clarity Clear Clear Urine pH 5.5 5.0-9.0 Urine Specific [place] 1.019 1.001-1.035 Urine Protein Negative Negative Urine Ketones Negative Negative Urine Blood Negative Negative /uL Urine Nitrite Negative Negative Urine Bilirubin Negative Negative Urine Urobilinogen Normal Negative mg/dL Urine Leukocyte Esterase Negative Negative /uL Urine RBC 1 0 - 4 /hpf Urine Microscopic WBC 2 0-5 /HPF Urine Squamous Epithelial Cells Few <5 /hpf Urine Bacteria Few H None Seen /hpf Urine Mucus Few None Seen Urine Glucose Normal Normal mg/dL Test 12/29/24 08:52 Range/Units POC Glucose 185 H 70-106 mg/dl Assessment/Plan Assessment/Plan # Rule out Sepsis # positive SIRS criteria # lactic acidosis Admit to telemetry unit IV fluid resuscitation Empiric antibiotic vancomycin Pancultures Check for COVID/influenza #Hypertension continue with antihypertensive medication # hyperlipidemia Continue with statins Check lipid panel # DM type 2 with hyperglycemia Insulin sliding scale Check A1c # hx CVA with right hemiplegia Monitor Fall with precautions DVT prophylaxis Medical plan discussed with patient, son at bedside, and RN Plan discussed with: Patient My Orders Orders - CASI RODRIGUEZ 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 Procedure Category Date Status Time Chest Two Views XY 12/29/24 Resulted Routine 13:39 Covid19 Antigen Mitzi LAB 12/29/24 In Process Rapid Influenza A&B LAB 12/29/24 In Process 13:42 Admit ADMIT 12/29/24 Transmitted 15:02 Code Status CODE 12/29/24 Transmitted 15:02 Sodium Chloride 0.9% PHA 12/29/24 Logged 15:15 Hydrocodone-Acet PHA 12/29/24 Logged 5/325mg Tab ([place] 15:15 Ondansetron Hcl PHA 12/29/24 Logged (Zofran) 15:15 Enoxaparin Sodium PHA 12/30/24 Logged (Lovenox) 10:00 Fall Risk Precautions WES 12/29/[address] 15:02 Complete Blood Count LAB 12/30/24 Verified 04:00 Comprehensive LAB 12/30/24 Verified Metabolic Panel 04:00 Condition: Fair WES 12/29/24 In Process 15:02 Acetaminophen Tablet PHA 12/29/24 Logged (Tylenol Tablet) 15:15 Morphine Sulfate PHA 12/29/24 Logged Injection 15:15 Glucose Blood PHA 12/29/24 Logged (Accu-Chek Comfort 17:00 Insulin R (Human) PHA 12/29/24 Logged (Insulin R) 17:00 Dextrose 50% Syringe PHA 12/29/24 Logged 15:15 Vancomycin Per PHA 12/29/24 Logged Pharmacy 15:15 Urine Bacterial NEHAL 12/29/24 Logged Culture 15:02 PROCEDURE(s): CXR2 - CHEST TWO VIEWS ROUTINE REASON: ? FB, lateral view ORDER NUMBER(s): [id number], ACCESSION NUMBER(s): [id number] XY CHEST TWO VIEWS ROUTINE CLINICAL HISTORY: FB, lateral view COMPARISON: None TECHNIQUE: Frontal and lateral view of the chest was obtained FINDINGS: Lines and Tubes: None Lungs: No focal consolidation. Pleura: No effusion. No pneumothorax. Cardiomediastinal contours: Unremarkable Bones: No acute osseous abnormality. IMPRESSION: 1. No acute cardiopulmonary disease. Date of Service: Dec 29, 2024 Billing Provider: CASI RODRIGUEZ Common Visit Codes: [id number] INP/OBS CARE (HIGH) CASI RODRIGUEZ Dec 29, 2024 15:31
[2024-12-29] MEDS: InsuLIN REG 1unit/0.01ml Soln (100units/ml) SC SCH (16:17)
[2024-12-29] MEDS: ACCU-CHEK COMFORT CURVE STRIP VI SCH (16:20)
[2024-12-29] MEDS ORDERED: ACCU-CHEK COMFORT CURVE STRIP VI SCH (17:00)
[2024-12-29] MEDS ORDERED: InsuLIN REG 1unit/0.01ml Soln (100units/ml) SC SCH (17:00)
[2024-12-29] MEDS: VANCOMYCIN 500mg/100mL 100 ML IV ONE (18:01)
[2024-12-29 19:55] VITALS: PULSE 76; RESP 17; O2SAT 98
[2024-12-29] MEDS: CEFEPIME 1GM/ 50ML 50 ML IV SCH (22:00)
[2024-12-29] MEDS: ATORVASTATIN 20 MG TAB PO SCH (22:00)
[2024-12-30] VITALS (8 sets, daily range): BP systolic 110–134; BP diastolic 44–80; PULSE 56–76; RESP 16–20; TEMP 97.6–98.9; O2SAT 95–100
[2024-12-30] MEDS: VANCOMYCIN 500mg/100mL 100 ML IV SCH (06:00)
[2024-12-30 07:33] LABS: Hemoglobin 13.5 g/dL (12.2-16.2)
[2024-12-30 07:35] LABS: Alanine Aminotransferase 12 U/L (7-40); Albumin 3.8 g/dL (3.2-4.8); Alkaline Phosphatase 53 U/L (46-116); Anion Gap 11 (5-15); BUN/Creatinine Ratio 12.8 (10.0-20.0); Blood Urea Nitrogen 10 mg/dL (9-23); Calcium 9.2 mg/dL (8.7-10.4); Carbon Dioxide 23 mmol/L (20-31); Chloride 105 mmol/L (98-107); Glucose 102 mg/dL (74-106); Potassium 4.1 mmol/L (3.5-5.1); Sodium 139 mmol/L (136-145); Total Protein 6.1 g/dL (5.7-8.2)
[2024-12-30 07:37] LABS: Bilirubin, Total 0.2 mg/dL (0.2-1.0); Hematocrit 38.9 % (36.0-46.0); Mean Corpuscular Hemoglobin 31.4 pg (28.0-32.0); Mean Corpuscular Volume 90.7 fL (80.0-100.0); Nucleated Red Blood Cells % 0.2 %
[2024-12-30] MEDS: ASPirin-EC 81 mg tab PO SCH (10:15)
[2024-12-30] MEDS: ENOXAPARIN SOD 40 MG/0.4 ML SYRINGE SC SCH (10:15)
[2024-12-30] MEDS: SERTRALINE HCL 50 MG TAB PO SCH (10:15)
[2024-12-30] MEDS: BENAZEPRIL HCL 10 MG TAB PO SCH (10:16)
--- NOTE | 2024-12-30 11:05 | DVHPN2 ---
Subjective Patient states that her back pain has improved. Reviewed: Care Plan, H&P, Labs, Medications Changes from previous H/P or p: No Changes General: Per HPI Eyes: No Pain, No Vision change, No Conjunctivae inflammation, No Eyelid inflammation, No Other, No Redness ENT: No Ear pain, No Ear discharge, No Nose pain, No Nose discharge, No Nose congestion, No Mouth pain, No Mouth swelling, No Throat pain, No Throat swelling, No Other Cardiovascular: No Chest Pain, No Palpitations, No Orthopnea, No Paroxysmal Noc. Dyspnea, No Edema, No Lt Headedness, No Other Respiratory: No Cough, No Dry, No Shortness of breath, No SOB with excertion, No Wheezing, No Hemoptysis, No Pleuritic Pain, No Sputum, No Other Gastrointestinal: Nausea; No Vomiting, No Abdominal Pain, No Diarrhea, No Constipation, No Melena, No Hematochezia, No Other Genitourinary: No Dysuria, No Frequency, No Incontinence, No Hematuria, No Retention, No Other Musculoskeletal: No other, No neck pain, No shoulder pain, No arm pain, No back pain, No hand pain, No leg pain, No foot pain Skin: No Rash, No Lesions, No Jaundice, No Bruising, No Other Objective Vitals Vital Signs Date Time Temp Pulse Resp B/P (MAP) Pulse Ox O2 Delivery O2 Flow Rate FiO2 12/30/24 10:16 130/69 12/30/24 09:30 98.1 58 16 96 98.1 12/30/24 08:00 Room Air* 0 21 Intake/Output Intake and Output 12/30/24 07:00 Intake Total 3420 ml Balance 3420 ml Intake Oral 200 ml IV Total 3220 ml General Appearance: Alert, Oriented X3, Cooperative, No acute distress HEENT: Atraumatic, PERRLA Lungs: Clear to auscultation, Normal air movement Cardiovascular: Normal S1, Normal S2 Abdomen: Normal bowel sounds, Soft, No tenderness, No hepatospenomegaly Back: Flank Tenderness, Midline Tenderness Musculoskeletal: Normal sensory function, Normal motor function Skin: Dry, Intact Psych/Mental Status: Mental status NL, Mood NL Medications Current Medications Medications Dose Ordered Sig/Dafne Route Start Time Stop Time Status Last Admin Dose Admin Cefepime HCl 50 ml @ 12.5 mls/hr Q12HR IV 12/29/24 22:00 12/30/24 10:15 12.5 MLS/HR Sodium Chloride 1,000 ml @ 60 mls/hr [id number] IV 12/29/24 15:15 12/30/24 07:17 60 MLS/HR Acetaminophen/ Hydrocodone Bitart 1 tab Q4HP PRN PO 12/29/24 15:15 Ondansetron HCl 4 mg Q4HP PRN IV 12/29/24 15:15 Enoxaparin Sodium 40 mg DAILY SC 12/30/24 10:00 12/30/24 10:15 40 MG Acetaminophen 650 mg Q6HP PRN PO 12/29/24 15:15 Morphine Sulfate 2 mg Q4HPRN PRN IV 12/29/24 15:15 Diagnostic Test (Pha) 1 strip ACHS 12/29/24 17:00 12/30/24 06:11 1 STRIP Insulin Human Regular ACHS SC 12/29/24 17:00 12/29/24 16:17 3 UNITS Dextrose 50 ml UD PRN IV 12/29/24 15:15 Vancomycin HCl 0 ml @ 0 mls/hr UD IV 12/29/24 15:15 Aspirin 81 mg DAILY PO 12/30/24 10:00 12/30/24 10:15 81 MG Benazepril HCl 20 mg DAILY PO 12/30/24 10:00 12/30/24 10:16 20 MG Atorvastatin Calcium 40 mg HS PO 12/29/24 22:00 12/29/24 22:00 40 MG Sertraline HCl 25 mg DAILY PO 12/30/24 10:00 12/30/24 10:15 25 MG Diagnostic Test (Pha) 1 strip ACHS 12/29/24 17:00 UNV Insulin Human Regular ACHS SC 12/29/24 17:00 UNV Dextrose 50 ml UD PRN IV 12/29/24 15:15 UNV Vancomycin HCl 100 ml @ 200 mls/hr Q12H IV 12/30/24 06:00 12/30/24 06:00 200 MLS/HR Laboratory Results Laboratory Tests 12/30/24 06:23 Chemistry Test 12/30/24 06:23 Albumin 3.8 g/dL (3.2-4.8) Calcium Level 9.2 mg/dL (8.7-10.4) Total Protein 6.1 g/dL (5.7-8.2) LFT Test 12/30/24 06:23 Alanine Aminotransferase (ALT) 12 U/L (7-40) Alkaline Phosphatase 53 U/L (46-116) Aspartate Amino Transferase (AST) 24 U/L (<34) Total Bilirubin 0.2 mg/dL (0.2-1.0) Urinalysis Test 12/29/24 08:55 Urine Color Yellow (Yellow) Urine Clarity Clear (Clear) Urine pH 5.5 (5.0-9.0) Urine Specific [place] 1.019 (1.001-1.035) Urine Protein Negative (Negative) Urine Ketones Negative (Negative) Urine Blood Negative /uL (Negative) Urine Nitrite Negative (Negative) Urine Bilirubin Negative (Negative) Urine Urobilinogen Normal mg/dL (Negative) Urine Leukocyte Esterase Negative /uL (Negative) Urine RBC 1 /hpf (0 - 4) Urine Microscopic WBC 2 /HPF (0-5) Urine Squamous Epithelial Cells Few /hpf (<5) Urine Bacteria Few /hpf (None Seen) H Urine Mucus Few (None Seen) Urine Glucose Normal mg/dL (Normal) Microbiology Microbiology Date/Time Source Procedure Growth Status 12/29/24 09:57 Blood Blood Culture - Preliminary NO GROWTH AFTER 24 HOURS OF INCUBATION. Resulted 12/29/24 08:55 Voided Urine Urine Culture - Preliminary Resulted Labs and/or images reviewed: Labs reviewed by me, Image(s) reviewed by me Assessment/Plan Assessment/Plan Impression: -rule out sepsis -leukopenia -complicated cystitis -diabetes mellitus -dyslipidemia Plan: -urine culture pending -blood cultures negative -continue current antibiotic therapy -gentle IV hydration -regular insulin sliding scale -repeat labs in a.m. Total time spent with patient discussing and formulating plan of care: 35 minutes. This medical document was created using an electronic medical record system with [employer] dictation system. Although this document has been carefully reviewed, there may still be some phonetic and typographical errors. These areas are purely typographical due to imperfections of the software programs, and do not reflect any compromise in the patient's medical care. Plan discussed with: Patient, Other (RN) Date of Service: Dec 30, 2024 Billing Provider: CHICA GALINDO NP Common Visit Codes: [id number] INP/OBS CARE(HIGH) CHICA GALINDO NP Dec 30, 2024 11:05
[2024-12-31 01:00] VITALS: BP 135/72; PULSE 53; RESP 17; TEMP 98.7; O2SAT 97
[2024-12-31 05:00] VITALS: BP 140/67; PULSE 57; RESP 16; TEMP 97.5; O2SAT 97
[2024-12-31 06:11] LABS: Hematocrit 38.8 % (36.0-46.0); Hemoglobin 13.5 g/dL (12.2-16.2); Mean Corpuscular Hemoglobin 31.3 pg (28.0-32.0); Mean Corpuscular Volume 89.8 fL (80.0-100.0)
[2024-12-31 06:31] LABS: Calcium 8.9 mg/dL (8.7-10.4); Chloride 104 mmol/L (98-107); Potassium 4.1 mmol/L (3.5-5.1); Sodium 140 mmol/L (136-145)
[2024-12-31 06:37] LABS: BUN/Creatinine Ratio 15.1 (10.0-20.0); Blood Urea Nitrogen 13 mg/dL (9-23)
[2024-12-31 06:53] LABS: Glucose 107 mg/dL (74-106)
[2024-12-31 06:55] LABS: Anion Gap 10 (5-15); Carbon Dioxide 26 mmol/L (20-31)
[2024-12-31 07:02] LABS: Total Cells Counted 100.0 (100)
[2024-12-31 08:00] VITALS: PULSE 54; PULSE 58; RESP 16; O2SAT 97
[2024-12-31 09:00] VITALS: BP 141/72; PULSE 54; RESP 16; TEMP 97.8; O2SAT 97
[2024-12-31 13:00] VITALS: BP 131/71; PULSE 56; RESP 18; TEMP 97.4; O2SAT 97
[2024-12-31] MEDS ORDERED: CEFD300C2 PO (13:00)
--- NOTE | 2024-12-31 14:01 | DVHDS2 ---
Discharge Summary Date of Admission Dec 29, 2024 at 15:02 Date of Discharge: Dec 31, 2024 Admitting Diagnosis Rule out sepsis Labs/Diagnostic Data: Laboratory Results Test 12/31/24 11:48 12/31/24 05:29 12/30/24 06:23 12/29/24 14:35 POC Glucose 201 mg/dl (70-106) White Blood Count 2.4 10^3/uL (4.4-10.8) Red Blood Count 4.32 10^6/uL (4.0-5.20) Hemoglobin 13.5 g/dL (12.2-16.2) Hematocrit 38.8 % (36.0-46.0) Mean Corpuscular Volume 89.8 fL (80.0-100.0) Mean Corpuscular Hemoglobin 31.3 pg (28.0-32.0) Mean Corpuscular Hemoglobin Concent 34.8 g/dL (32.0-36.0) Red Cell Distribution Width 13.3 % (11.8-14.3) Platelet Count 209 10^3/uL (140-450) Mean Platelet Volume 7.4 fL (6.9-10.8) Neutrophils (%) (Auto) % (37.0-80.0) Lymphocytes (%) (Auto) % (10.0-50.0) Monocytes (%) (Auto) % (0.0-12.0) Basophils (%) (Auto) % (0.0-2.0) Neutrophils # (Auto) 10 ^3/uL (1.6-8.6) Lymphocytes # (Auto) 10 ^3/uL (0.4-5.4) Monocytes # (Auto) 10 ^3/uL (0-1.3) Differential Total Cells Counted 100.0 (100) Neutrophils % (Manual) 26 (37.0-80.0) Band Neutrophils % (Manual) 0 Lymphocytes % (Manual) 56 (10.0-50.0) Monocytes % (Manual) 6 (0-12) Eosinophils % (Manual) 0 (0-7) Basophils % (Manual) 0 (0.0-2.0) Metamyelocytes % (manual) 0 Myelocytes % (Manual) 0 Promyelocytes % (Manual) 0 Blast Cells % (Manual) 0 Reactive Lymphocytes 12 Platelet Estimate Adequate Sodium Level 140 mmol/L (136-145) Potassium Level 4.1 mmol/L (3.5-5.1) Chloride Level 104 mmol/L (98-107) Carbon Dioxide Level 26 mmol/L (20-31) Anion Gap 10 (5-15) Blood Urea Nitrogen 13 mg/dL (9-23) Creatinine 0.86 mg/dL (0.550-1.02) Glomerular Filtration Rate Calc 70 mL/min (>90) BUN/Creatinine Ratio 15.1 (10.0-20.0) Serum Glucose 107 mg/dL (74-106) Calcium Level 8.9 mg/dL (8.7-10.4) Vancomycin Level Trough 10.4 ug/mL (5-10) Eosinophils (%) (Auto) 0.2 % (0.0-7.0) Eosinophils # (Auto) 0 10 ^3/uL (0-0.8) Basophils # (Auto) 0 10 ^3/uL (0-0.2) Nucleated Red Blood Cells 0.2 % Total Bilirubin 0.2 mg/dL (0.2-1.0) Aspartate Amino Transferase (AST) 24 U/L (<34) Alanine Aminotransferase (ALT) 12 U/L (7-40) Alkaline Phosphatase 53 U/L (46-116) Total Protein 6.1 g/dL (5.7-8.2) Albumin 3.8 g/dL (3.2-4.8) Influenza Type A Antigen Negative (Negative) Influenza Type B Antigen Negative (Negative) SARS-CoV-2 Antigen (Rapid) Negative (NEGATIVE) Test 12/29/24 11:45 12/29/24 09:57 12/29/24 08:55 Lactic Acid Level 2.7 mmol/L (0.4-2.0) Prothrombin Time 10.4 sec (9.3-11.8) Prothrombin Time INR 0.98 (0.9-1.15) Activated Partial Thromboplast Time 28.5 SEC (24.5-34.5) Urine Color Yellow (Yellow) Urine Clarity Clear (Clear) Urine pH 5.5 (5.0-9.0) Urine Specific [place] 1.019 (1.001-1.035) Urine Protein Negative (Negative) Urine Ketones Negative (Negative) Urine Blood Negative /uL (Negative) Urine Nitrite Negative (Negative) Urine Bilirubin Negative (Negative) Urine Urobilinogen Normal mg/dL (Negative) Urine Leukocyte Esterase Negative /uL (Negative) Urine RBC 1 /hpf (0 - 4) Urine Microscopic WBC 2 /HPF (0-5) Urine Squamous Epithelial Cells Few /hpf (<5) Urine Bacteria Few /hpf (None Seen) Urine Mucus Few (None Seen) Urine Glucose Normal mg/dL (Normal) Other Laboratory Tests 12/31/24 05:29 Brief Hx & Hospital Course: History of Present Illness A 74-year-old Syriac speaking female presents to the emergency department accompanied by her son with complaint of generalized body aches, nausea, subjective fever, and reported low blood pressure that began earlier today. According to her son, a systolic blood pressure of 95 mmHg was noted at home this morning. In the ED, her initial blood pressure was 135/99 mm Hg. The patient denies vomiting but continues to feel nauseated. Laboratory evaluation revealed an elevated lactic acid, leukopenia with WBC count of 3.5, neutrophilic predominance 86. 9% and low lymphocytes 6.9%. Urinalysis was negative, and chest x-ray shows no acute pathology. 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 Course of hospitalization: Patient was started on empiric antibiotic therapy with cefepime and vancomycin. CBC was reviewed with differential revealing neutropenia and lymphocytosis. Patient was clinical status improved. Long discussion was made with the patient was son as well as patient regarding her repeated admissions as well as her overall clinical status. Recommendations at this time is for the patient to have bone marrow biopsy, and follow up with a pattern repair person. This was discussed with the patient and son who would like to follow up with her PCP and obtain referral for a pattern repair person to evaluate this recommendation. Patient will be continued on antibiotics after being discharged today in the form of cefdinir 300 mg p.o. b.i.d. for additional five days. Physical exam General: Alert and Oriented x3. No acute distress. Well-nourished. Eyes: EOMI. Anicteric. HENT: Moist mucous membranes. Lungs: Clear to auscultation bilaterally. No accessory muscle use. Cardiovascular: Regular rate and rhythm. No murmur. No JVD. Abdomen: Soft, non-tender and non-distended. No palpable masses. Extremities: No edema. Non-tender. Skin: No rashes or lesions. Warm. Neurologic: No focal neurological deficits. CN II-XII grossly intact, but not individually tested. Psychiatric: Cooperative. Appropriate mood and affect. Total time spent with patient discussing and formulating plan of care: 35 minutes. This medical document was created using an electronic medical record system with [employer] system. Although this document has been carefully reviewed, there may still be some phonetic and typographical errors. These areas are purely typographical due to imperfections of the software programs, and do not reflect any compromise in the patient's medical care. Condition at Discharge: Guarded Final Diagnosis/Problems List Sepsis secondary to UTI Secondary diagnosis: -leukopenia -complicated cystitis -diabetes mellitus -dyslipidemia Discharge Disposition: Home Discharge Instruct/Medications Diet: Consistent carbohydrate Activity: No Restrictions, As Tolerated Follow Up/Referral: PCP in 1-2 weeks Recommend referral to Prison Teacher/Oncologist for further testing Medications: Cefdinir 300mg po bid x 5 days Scheduled Aspirin (Aspir-Low), 81 MG PO DAILY, (Reported) Benazepril Hcl (Benazepril Hcl), 20 MG PO DAILY, (Reported) Cefdinir (Cefdinir), 1 CAP PO BID Lorazepam (Ativan Tablet), 1 TAB PO TID Rosuvastatin Calcium (Crestor), 1 TAB PO DAILY, (Reported) Sertraline Hcl (Zoloft), 1 TAB PO DAILY Scheduled PRN Diphenhydramine Hcl (Benadryl Capsule), 25 MG PO Q8HP PRN Prochlorperazine Maleate (Compazine), 1 TAB PO Q8HP PRN Miscellaneous Medications Metformin Hydrochloride (Metformin Hcl), 850 MG PO, (Reported) 36 Discharge Statement: "Patient was advised to return to the ER or call 911 if any headaches, dizziness, shortness of breath, chest pain, abdominal pain, bleeding, fevers, or worsening of medical condition. Patient was counseled about treatment plan, medications, possible side effects, patientverbalized understanding. All questions were answered to the best of my ability. This discharge took greater then 30 minutes in planning, reviewing documentation, counseling the patient, and discussing with other team members." ASSESSMENT ASSESSMENT Assessment Sepsis secondary to UTI Date of Service: Dec 31, 2024 Billing Provider: CHICA GALINDO NP Common Visit Codes: 60440-IIG/OBS DISCH DAY >30min CHIAC GALINDO NP Dec 31, 2024 14:01
[2024-12-31 14:15] VITALS: BP 137/62; PULSE 59; RESP 16; TEMP 97.9; O2SAT 96
== END 2024-12-31 14:50 | disposition home or self-care (01) | DRG 872 ==
LOC: ER 08:40 → OVERFLOW 15:02 → TELE-EAST 12-30 02:18
PROVIDERS: ADMIT Nurse Practitioner Acute Care; ATTEND Nurse Practitioner Acute Care
DX: A41.9 Sepsis, unspecified organism (principal); E87.20 Acidosis, unspecified; I69.351 Hemiplegia and hemiparesis following cerebral infarction affecting right dominant side; N30.90 Cystitis, unspecified without hematuria; I10 Essential (primary) hypertension; Z20.822 Contact with and (suspected) exposure to COVID-19; E11.65 Type 2 diabetes mellitus with hyperglycemia; E78.5 Hyperlipidemia, unspecified; Z79.4 Long term (current) use of insulin; Z79.82 Long term (current) use of aspirin; Z90.710 Acquired absence of both cervix and uterus; Z79.899 Other long term (current) drug therapy
CPT/HCPCS: 36415; 71045; 71046; 80048; 80053; 80202; 81001; 82962; 83605; 85007; 85025; 85027; 85610; 85730; 87040; 87086; 87426; 87804; 96360; G0378; J1815

== ENCOUNTER 2025-01-21 08:30 | Inpatient (IN) | payer OTHER, MEDICAID ==
[~2025-01-21] VITALS: Ht 154.9 cm; Wt 65.1 kg
[~2025-01-21 08:30] MED LIST changes: +CEFD300C2 PO
[2025-01-21 09:21] LABS: Urine Protein, UAD Negative (Negative)
[2025-01-21 09:32] LABS: Hematocrit 39.8 % (36.0-46.0); Hemoglobin 13.7 g/dL (12.2-16.2); Mean Corpuscular Hemoglobin 31.2 pg (28.0-32.0); Mean Corpuscular Volume 90.8 fL (80.0-100.0); Nucleated Red Blood Cells % 0.0 %
--- NOTE | 2025-01-21 09:33 | ED.PDOC ---
HPI (NEURO) HPI Comments 74 y/o F, with PMHx of HTN, DM, CVA, and HLD presents to the ED for CC of right sided facial numbness. Patient states, she has been experiencing right-sided facial numbness with associated symptoms of headache onset, yesterday (01/21/25). Patient reports, associated difficulty talking d/t right sided facial droop with drooling. Patient complains of current 10/10 frontal headache. Patient denies chest pain, weakness, changes in gait, photophobia, nausea, or vomiting. No other associated symptoms, modifiers, recent injuries or sick contacts present at this time. Chief Complaint: Right Sided Weakness Time Seen by MD: 09:00 Primary Care Provider: DAVIS Pastor Notes: Nurses Notes, Medications, Allergies Information Source: Patient, Relative (Child) Mode of Arrival: Ambulatory Severity: Moderate Dizziness/Weakness Severity: Unable to do activities Headache Severity: Moderate Timing: Days Duration: Since onset Prehospital treatment: None Headache Location: Frontal Numbness Location: (R) Sided, Facial Onset: At rest Circumstances: Spontaneous Symptoms: Numbness Before: Normal During: Awake After: Normal Mentation History of: CVA Modifying factors: Nothing Associated Signs and Symptoms: None Past Medical History PAST MEDICAL HISTORY: CVA, DM, High Lipids, HTN Surgical History: Hysterectomy INFORMATICS SPEC History: No Pertinent INFORMATICS SPEC History Family History Family History: Reviewed,noncontributory to illness Social History Smoker: Non-Smoker Alcohol: Denies ETOH Use Drugs: Denies Drug Use Lives In: Home Constitutional: denies: chills, diaphoresis, fatigue, fever, malaise, sweats, weakness, others EENTM: denies: blurred vision, double vision, ear bleeding, ear discharge, ear drainage, ear pain, ear ringing, eye pain, eye redness, hearing loss, mouth pain, mouth swelling, nasal discharge, nose bleeding, nose congestion, nose pain, photophobia, tearing, throat pain, throat swelling, voice changes, others Respiratory: denies: cough, hemoptysis, orthopnea, SOB at rest, shortness of b reath, SOB with excertion, stridor, wheezing, others Cardiovascular: denies: chest pain, dizzy spells, diaphoresis, Dyspnea on exertion, edema, irregular heart beat, left arm pain, lightheadedness, palpitations, PND, syncope, others Gastrointestinal: denies: abdomen distended, abdominal pain, blood streaked bowels, constipated, diarrhea, dysphagia, difficulty swallowing, hematemesis, melena, nausea, poor appetite, poor fluid intake, rectal bleeding, rectal pain, vomiting, others Genitourinary: denies: abnormal vagina bleeding, burning, dyspareunia, dysuria, flank pain, frequency, hematuria, incontinence, pain, , vagina discharge, urgency, others Neurological: reports: numbness (right sided facial ), right sided numbness; denies: dizziness, fainting, headache, left sided numbness, left sided weakness, paresthesia, pre-existing deficit, right sided weakness, seizure, speech p roblems, tingling, tremors, weakness, others Musculoskeletal: denies: back pain, gout, joint pain, joint swelling, muscle pain, muscle stiffness, neck pain, others Integumetry: denies: bruises, change in color, change in hair/nails, dryness, laceration, lesions, lumps, rash, wounds, others Allergic/Immunocompromised: denies: Difficulty Healing, Frequent Infections, Hives, Itching, others Hematologic/Lymphatic: denies: anemia, blood clots, easy bleeding, easy bruising, swollen glands, others Endocrine: denies: excessive hunger, excessive sweating, excessive thirst, excessive urination, flushing, intolerance to cold, intolerance to heat, unexplained weight gain, unexplained weight loss, others Psychiatric: denies: anxiety, bipolar disorder, depression, hopeless, panic disorder, schizophrenia, sleepless, suicidal, others All Other Systems: Reviewed and Negative Physical Exam General Appearance: Moderate Distress HEENT: Normal ENT Inspection, Pharynx Normal, TMs Normal, Other (Right eye redness) Neck: Full Range of Motion, Non-Tender, Normal, Normal Inspection Respiratory: Chest Non-Tender, Lungs Clear, No Accessory Muscle Use, No Respiratory Distress, Normal Breath Sounds Cardiovascular: No Edema, No JVD, No Murmur, No Gallop, Normal Peripheral Pulses, Regular Rate/Rhythm Breast Exam: Deferred Gastrointestinal: No Organomegaly, Non Tender, No Pulsatile Mass, Normal Bowel Sounds, Soft Genitalia: Deferred Pelvic: Deferred Rectal: Deferred Extremities: No calf tenderness, Normal capillary refill, Normal inspection, Normal range of motion, Non-tender, No pedal edema Musculoskeletal : Apperance: Normal Neurologic: Alert, Motor Weakness, No Sensory Deficits Cerebellar Function: Normal Reflexes: Normal Skin: Dry, Normal Color, Warm Peripheral Pulses: 3+ Radial (R), 3+ Radial (L) Lymphatic: No Adenopathy EKG EKG : Pulse Rate (adult): 79 [place]: Normal Cardiac Rhythm: NSR Block: None Hypertrophy: None ST: Normal Was a procedure done? Was a procedure done?: No Differential Diagnosis (SZ) Seizure: Psychogenic Seizure, Closed Head Injury, CVA/TIA CVA: Rizvi's Palsy, CVA, TIA Headache: Epidural Hemorrhage, Subdural Hemorrhage X-Ray, Labs, Meds, VS Vital Signs Date Time Temp Pulse Resp B/P (MAP) Pulse Ox O2 Delivery O2 Flow Rate FiO2 01/21/25 10:01 Room Air* 0 21 01/21/25 10:01 98.8 67 18 140/56 (84) 95 98.8 01/21/25 09:34 79 01/21/25 08:46 79 01/21/25 08:32 98.2 82 16 134/63 (86) 97 98.2 Lab Test 01/21/25 09:16 01/21/25 09:07 01/21/25 08:47 Range/Units White Blood Count 5.0 4.4-10.8 10^3/uL Red Blood Count 4.39 4.0-5.20 10^6/uL Hemoglobin 13.7 12.2-16.2 g/dL Hematocrit 39.8 36.0-46.0 % Mean Corpuscular Volume 90.8 80.0-100.0 fL Mean Corpuscular Hemoglobin 31.2 28.0-32.0 pg Mean Corpuscular Hemoglobin Concent 34.4 32.0-36.0 g/dL Red Cell Distribution Width 14.3 11.8-14.3 % Platelet Count 353 140-450 10^3/uL Mean Platelet Volume 6.9 6.9-10.8 fL Neutrophils (%) (Auto) 57.4 37.0-80.0 % Lymphocytes (%) (Auto) 31.1 10.0-50.0 % Monocytes (%) (Auto) 9.6 0.0-12.0 % Eosinophils (%) (Auto) 1.6 0.0-7.0 % Basophils (%) (Auto) 0.3 0.0-2.0 % Neutrophils # (Auto) 2.9 1.6-8.6 10 ^3/uL Lymphocytes # (Auto) 1.6 0.4-5.4 10 ^3/uL Monocytes # (Auto) 0.5 0-1.3 10 ^3/uL Eosinophils # (Auto) 0.1 0-0.8 10 ^3/uL Basophils # (Auto) 0 0-0.2 10 ^3/uL Nucleated Red Blood Cells 0.0 % Sodium Level 140 136-145 mmol/L Potassium Level 4.3 3.5-5.1 mmol/L Chloride Level 104 98-107 mmol/L Carbon Dioxide Level 27 20-31 mmol/L Anion Gap 9 5-15 Blood Urea Nitrogen 13 9-23 mg/dL Creatinine 0.84 0.550-1.02 mg/dL Glomerular Filtration Rate Calc 72 >90 mL/min BUN/Creatinine Ratio 15.5 10.0-20.0 Serum Glucose 112 H 74-106 mg/dL Calcium Level 9.8 8.7-10.4 mg/dL Troponin I High Sensitivity < 3 L </=34 ng/L Urine Color Light-yellow Yellow Urine Clarity Clear Clear Urine pH 6.5 5.0-9.0 Urine Specific [place] 1.009 1.001-1.035 Urine Protein Negative Negative Urine Ketones Negative Negative Urine Blood Negative Negative /uL Urine Nitrite Negative Negative Urine Bilirubin Negative Negative Urine Urobilinogen Normal Negative mg/dL Urine Leukocyte Esterase Negative Negative /uL Urine RBC 1 0 - 4 /hpf Urine Microscopic WBC < 1 0-5 /HPF Urine Squamous Epithelial Cells None seen <5 /hpf Urine Bacteria None seen None Seen /hpf Urine Glucose Normal Normal mg/dL POC Glucose 108 H 70-106 mg/dl [place] [id number] Ph: [phone] DIAGNOSTIC IMAGING Diagnostic Imaging Report : [id number] Signed PATIENT: RUTHIE CAIN ,ROOSEVELTT: [id number] UNIT: [id number] : 1950 LOC: ER ROOM / BED: / AGE / SEX: 74 / F ADM STATUS: REG ER SERVICE [id number] ORDERING PHYSICIAN: ALEXANDRIA MCKEON MD PROCEDURE(s): HWOCT - HEAD WITHOUT CONTRAST REASON: tia ORDER NUMBER(s): [id number], ACCESSION NUMBER(s): [id number] CLINICAL INFORMATION: Transient ischemic attack. TECHNIQUE: Axial imaging was obtained through the brain without contrast. Reed nal and sagittal reformatted images were obtained, reviewed, and stored. Images were reviewed in brain and bone windows. All CT scans at this medical facility are performed using dose modulation techniques as appropriate to a performed exam including the following: Automated exposure control was utilized; adjustment of the MA and/or KV according to patient size; and use of iterative reconstruction technique. CTDIvol = 52.29 mGy DLP = 924.88 mGy-cm COMPARISON: CT HEAD WITHOUT CONTRAST on DOS: 08/25/23, CT STROKE CTH on DOS: 08/17/23, CT STROKE CTH on DOS: 07/14/23 FINDINGS: There is no acute intracranial hemorrhage. No mass effect or midline shift. Empty sella visualized. The ventricles and sulci are within normal limits in size for age. Basal cisterns are patent. Prominent arachnoid granulations are seen in the calvarium, similar to prior exams. [id number] mucosal thickening of the paranasal sinuses. There is partial opacification of the mastoid air cells bilaterally, with cortical deformity of the posterior cortices of both mastoids, which is also seen on prior exams without significant change. IMPRESSION: 1. No CT evidence of acute intracranial hemorrhage. 2. Partial opacification of the mastoid air cells, most prominent posteriorly. There are cortical deformities of the posterior aspects of both mastoids, may be sequela of prior erosive changes, similar in appearance compared to the prior exam. Correlate with clinical findings. If clinically indicated, dedicated imaging of the temporal bones could be considered to further characterize. 3. Additional nonacute findings as described above. ATED BY: DANILO PRECIADO DO DICTATED DATE/TIME: 01/21/25954 SIGNED BY: DANILO PRECIADO DO SIGNED DATE/TIME: 01/21/25954 CC: Patient alert. Complaining of weakness. Vitals stable. Answering questions Redness of the conjunctiva of the right eye. Establish intravenous access. Was given fluids. Was given [place]. Explained to the family she will need MRI. Continue monitoring. Time of 1ST Reevaluation: 09:30 Reevaluation 1ST: Unchanged Patient Education/Counseling: Diagnosis, Treatment Family Education/Counseling: No Family Present Departure 1 Departure Time of Disposition: 10:26 Impression: Primary Impression: TIA (transient ischemic attack) Disposition: ADMITTED INPATIENT Admit to: Med Surg Condition: Guarded Critical Care Note Critical Care Time?: Yes (90 min-critical care time only) Critical care comment: Continue to monitor Stability Stability form required: No Heart Score Heart Score: Heart Score Response (Comments) Value History N/A 0 EKG N/A 0 Age N/A 0 Risk Factors N/A 0 Troponin N/A 0 Total 0 I personally scribed for ALEXANRDIA MCKEON MD ([email or web address]) on 01/21/25 at 09:33. Electronically submitted by Cata Bah ([email or web address]). I personally scribed for ALEXANDRIA MCKEON MD ([email or web address]) on 01/21/25 at 09:34. Electronically submitted by Cata Bah ([email or web address]). I personally scribed for ALEXANDRIA MCKEON MD ([email or web address]) on 01/21/25 at 10:07. Electronically submitted by Cata Bah ([email or web address]). I personally scribed for ALEXANDRIA MCKEON MD ([email or web address]) on 01/21/25 at 10:08. Electronically submitted by Cata Bah ([email or web address]). ALEXANDRIA MCKEON MD Jan 21, 2025 09:33
[2025-01-21 09:37] LABS: Chloride 104 mmol/L (98-107); Potassium 4.3 mmol/L (3.5-5.1); Sodium 140 mmol/L (136-145)
[2025-01-21 09:38] LABS: Anion Gap 9 (5-15); Carbon Dioxide 27 mmol/L (20-31)
[2025-01-21 09:39] LABS: Calcium 9.8 mg/dL (8.7-10.4)
[2025-01-21 09:43] LABS: BUN/Creatinine Ratio 15.5 (10.0-20.0); Blood Urea Nitrogen 13 mg/dL (9-23)
[2025-01-21 09:44] LABS: Glucose 112 mg/dL (74-106)
--- NOTE | 2025-01-21 09:54 | ECG ---
[facility] Test Date: 2025-01-21 Test Time: 08:46:10 Pat Name: JENNIFER CAIN Department: ER Room: [facility]5T Gender: F Commercial Credit Lead: REGLA : 1950 Requested By: ALEXANDRIA MCKEON Order Number: [id number] Reading MD: Santi Kelly Measurements Intervals [place] Rate: 79 P: 69 IA: 157 QRS: 69 QRSD: 88 T: -6 QT: 368 QTc: 422 Interpretive Statements Sinus rhythm Low voltage, precordial leads Borderline T abnormalities, inferior leads Electronically Signed On 01-22-2025 17:00:43 PDT by Santi Kelly Please click the below link to view image of tracing.
--- NOTE | 2025-01-21 09:57 | DVH ---
CLINICAL INFORMATION: Transient ischemic attack. TECHNIQUE: Axial imaging was obtained through the brain without contrast. Coronal and sagittal reform atted images were obtained, reviewed, and stored. Images were reviewed in brain and bone windows. Al l CT scans at this medical facility are performed using dose modulation techniques as appropriate to a performed exam including the following: Automated exposure control was utilized; adjustment of the MA and/or KV according to patient size; and use of iterative reconstruction technique. CTDIvol = 52.2 9 mGy DLP = 924.88 mGy-cm COMPARISON: CT HEAD WITHOUT CONTRAST on DOS: 08/25/23, CT STROKE CTH on DOS: 08/17/23, CT STROKE CTH on DOS: 07/14/23 FINDINGS: There is no acute intracranial hemorrhage. No mass effect or midline shift. Empty sella vis ualized. The ventricles and sulci are within normal limits in size for age. Basal cisterns are patent . Prominent arachnoid granulations are seen in the calvarium, similar to prior exams. [id number] te mucosal thickening of the paranasal sinuses. There is partial opacification of the mastoid air ellis ls bilaterally, with cortical deformity of the posterior cortices of both mastoids, which is also see n on prior exams without significant change. IMPRESSION: 1. No CT evidence of acute intracranial hemorrhage. 2. Partial opacification of the mastoid air cells, most prominent posteriorly. There are cortical de formities of the posterior aspects of both mastoids, may be sequela of prior erosive changes, similar in appearance compared to the prior exam. Correlate with clinical findings. If clinically indicated , dedicated imaging of the temporal bones could be considered to further characterize. 3. Additional nonacute findings as described above.
[2025-01-21] MEDS: HYDROcodone-ACET 10/325MG TAB PO ONE (10:10)
--- NOTE | 2025-01-21 12:27 | DVHHP2 ---
History of Present Illness Reason for Visit: facial numbness History of Present Illness Yanet Duran SR is a 74-year-old female with past medical history of CVA, diabetes, hypertension, hyperlipidemia, and hypothyroidism, who came to the hospital due to right facial numbness and tingling. Patient states she is having right sided facial numbness, and tingling with associated right ear pain, and right eye burning. Her symptoms began yesterday, and she came to the hospital today due to no improvement in her symptoms. Cardiovascular: HTN, hyperipidemia CRUSHER: CVA Endocrine: Diabetes, Hypothyroidism Past Surgical History: Hysterectomy Family History: None Smoke: No ALCOHOL: none Drugs: None Lives: with Family Domestic Violence: Neg Review of Systems Constitutional: Yes: Other (right eye burning); No: Fever, Chills, Sweats, Weakness, Malaise Eyes: No: Pain, Vision change, Conjunctivae inflammation, Eyelid inflammation, Other, Redness ENT: No: Ear pain, Ear discharge, Nose pain, Nose discharge, Nose congestion, Mouth pain, Mouth swelling, Throat pain, Throat swelling, Other Respiratory: No: Cough, Dry, Shortness of breath, SOB with excertion, Wheezing, Hemoptysis, Pleuritic Pain, Sputum, Wheezing, Other Cardiovascular: No: Chest Pain, Palpitations, Orthopnea, Paroxysmal Noc. Dyspnea, Edema, Lt Headedness, Other Gastrointestinal: No: Nausea, Vomiting, Abdominal Pain, Diarrhea, Constipation, Melena, Hematochezia, Other Genitourinary: No Dysuria, No Frequency, No Incontinence, No Hematuria, No Retention, No Other Musculoskeletal: No: other, neck pain, shoulder pain, arm pain, back pain, hand pain, leg pain, foot pain Skin: No: Rash, Lesions, Jaundice, Bruising, Other Neurological: Numbness (and tingling in right face); No: Weakness, Incoordination, Change in speech, Confusion, Seizures, Other Allergies: Coded Allergies: NO KNOWN ALLERGIES (Unverified , 07/14/23) Exam Vital Signs Vital Signs Date Time Temp Pulse Resp B/P (MAP) Pulse Ox O2 Delivery O2 Flow Rate FiO2 01/21/25 10:01 Room Air* 0 21 01/21/25 10:01 98.8 67 18 140/56 (84) 95 98.8 General Appearance: Alert, Oriented X3, Cooperative, mild distress HEENT: Atraumatic, PERRLA, Mucous membr. moist/pink Respiratory: Clear to auscultation, Normal air movement Cardiovascular: Regular rate, Normal S1, Normal S2, No murmurs Abdominal: Normal bowel sounds, Soft, No tenderness, No hepatospenomegaly Extremities: No clubbing, No cyanosis, No edema, Normal pulses, No tenderness/swelling Skin: No rashes, No breakdown, No significant lesion Neuro: Normal gait, Normal speech, Strength at 5/5 X4 ext, Normal tone, Other (right facial droop) Psych/Mental Status: Mental status NL, Mood NL Labs/Xrays Labs Test 01/21/25 09:16 01/21/25 09:07 01/21/25 08:47 Range/Units White Blood Count 5.0 4.4-10.8 10^3/uL Red Blood Count 4.39 4.0-5.20 10^6/uL Hemoglobin 13.7 12.2-16.2 g/dL Hematocrit 39.8 36.0-46.0 % Mean Corpuscular Volume 90.8 80.0-100.0 fL Mean Corpuscular Hemoglobin 31.2 28.0-32.0 pg Mean Corpuscular Hemoglobin Concent 34.4 32.0-36.0 g/dL Red Cell Distribution Width 14.3 11.8-14.3 % Platelet Count 353 140-450 10^3/uL Mean Platelet Volume 6.9 6.9-10.8 fL Neutrophils (%) (Auto) 57.4 37.0-80.0 % Lymphocytes (%) (Auto) 31.1 10.0-50.0 % Monocytes (%) (Auto) 9.6 0.0-12.0 % Eosinophils (%) (Auto) 1.6 0.0-7.0 % Basophils (%) (Auto) 0.3 0.0-2.0 % Neutrophils # (Auto) 2.9 1.6-8.6 10 ^3/uL Lymphocytes # (Auto) 1.6 0.4-5.4 10 ^3/uL Monocytes # (Auto) 0.5 0-1.3 10 ^3/uL Eosinophils # (Auto) 0.1 0-0.8 10 ^3/uL Basophils # (Auto) 0 0-0.2 10 ^3/uL Nucleated Red Blood Cells 0.0 % Sodium Level 140 136-145 mmol/L Potassium Level 4.3 3.5-5.1 mmol/L Chloride Level 104 98-107 mmol/L Carbon Dioxide Level 27 20-31 mmol/L Anion Gap 9 5-15 Blood Urea Nitrogen 13 9-23 mg/dL Creatinine 0.84 0.550-1.02 mg/dL Glomerular Filtration Rate Calc 72 >90 mL/min BUN/Creatinine Ratio 15.5 10.0-20.0 Serum Glucose 112 H 74-106 mg/dL Calcium Level 9.8 8.7-10.4 mg/dL Troponin I High Sensitivity < 3 L </=34 ng/L Urine Color Light-yellow Yellow Urine Clarity Clear Clear Urine pH 6.5 5.0-9.0 Urine Specific [place] 1.009 1.001-1.035 Urine Protein Negative Negative Urine Ketones Negative Negative Urine Blood Negative Negative /uL Urine Nitrite Negative Negative Urine Bilirubin Negative Negative Urine Urobilinogen Normal Negative mg/dL Urine Leukocyte Esterase Negative Negative /uL Urine RBC 1 0 - 4 /hpf Urine Microscopic WBC < 1 0-5 /HPF Urine Squamous Epithelial Cells None seen <5 /hpf Urine Bacteria None seen None Seen /hpf Urine Glucose Normal Normal mg/dL POC Glucose 108 H 70-106 mg/dl TECHNIQUE: Axial imaging was obtained through the brain without contrast. FINDINGS: There is no acute intracranial hemorrhage. No mass effect or midline shift. Empty sella visualized. The ventricles and sulci are within normal limits in size for age. Basal cisterns are patent. Prominent arachnoid granulations are seen in the calvarium, similar to prior exams. [id number] mucosal thickening of the paranasal sinuses. There is partial opacification of the mastoid air cells bilaterally, with cortical deformity of the posterior cortices of both mastoids, which is also seen on prior exams without significant change. IMPRESSION: 1. No CT evidence of acute intracranial hemorrhage. 2. Partial opacification of the mastoid air cells, most prominent posteriorly. There are cortical deformities of the posterior aspects of both mastoids, may be sequela of prior erosive changes, similar in appearance compared to the prior exam. Correlate with clinical findings. If clinically indicated, dedicated imaging of the temporal bones could be considered to further characterize. 3. Additional nonacute findings as described above. SEPSIS Sepsis Screen Date sepsis recognized/suspect: Jan 21, 2025 Time Sepsis recognized/suspect: 0834 Recent Procedure: No On Antibiotic Therapy: No Respiratory Rate >20: No Heart Rate >90: No Temp<36 C (96.8 F) or >38.3 C: No SBP <90 or MAP <65 mmHG: No New Acute Mental Status Change: No Is the patient on CPAP, BIPAP,: No Physician Orders Head Without Contrast (01/21/25 09:07) Vital Signs Date Time Temp Pulse Resp B/P (MAP) Pulse Ox O2 Delivery O2 Flow Rate FiO2 01/21/25 10:01 Room Air* 0 21 01/21/25 10:01 98.8 67 18 140/56 (84) 95 98.8 01/21/25 09:34 79 01/21/25 08:46 79 01/21/25 08:32 98.2 82 16 134/63 (86) 97 98.2 Laboratory Tests Test 01/21/25 09:16 White Blood Count 5.0 10^3/uL (4.4-10.8) Medications Medications Dose Ordered Sig/Dafne Route Start Time Stop Time Status Last Admin Dose Admin Acetaminophen/ Hydrocodone Bitart 1 tab ONCE ONCE PO 01/21/25 10:15 01/21/25 10:16 DC 01/21/25 10:10 1 TAB Assessment/Plan Assessment/Plan Assessment: 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
[2025-01-21] MEDS ORDERED: ACETAMINOPHEN 325 MG TAB PO PRN ×2 (12:30→12:45)
[2025-01-21] MEDS ORDERED: ONDANSETRON HCL 4 MG/2 ML VIAL IV PRN ×2 (12:30→12:45)
[2025-01-21] MEDS ORDERED: DOCUSATE SOD 100 MG CAP PO PRN ×2 (12:30→12:45)
[2025-01-21] MEDS ORDERED: NITROGLYCERIN 0.4 MG SL TAB SL PRN ×2 (12:30→12:45)
[2025-01-21] MEDS ORDERED: MORPHINE SULFATE INJ 2 MG/ml SYRG IV PRN ×2 (12:30→12:45)
[2025-01-21] MEDS ORDERED: HYDROcodone-ACET 5/325MG TAB PO PRN (12:30)
[2025-01-21] MEDS: HYDROcodone-ACET 5/325MG TAB PO PRN (14:15)
--- NOTE | 2025-01-21 15:11 | DVH ---
EXAM: MRI BRAIN HEAD WO CONTRAST CLINICAL HISTORY: Possible CVA COMPARISON: MRI BRAIN HEAD WO CONTRAST on DOS: 07/16/23 TECHNIQUE: Multiplanar, multisequence magnetic resonance imaging of the brain was performed without intravenous contrast. FINDINGS: Normal brain volume and formation. T2 /FLAIR hyperintense focus within the right aguilar radiata areas of chronic infarct versus chronic small-vessel ischemic changes. No hemorrhages, masses, mass effect, midline shift, herniation or cytotoxic edema following a large v ascular territory. No intra-axial or extra-axial fluid collections. No evidence of hydrocephalus. Th e basal cisterns are patent. The vascular flow voids are maintained. Bilateral subinsular region prom inent perivascular spaces. Nonspecific partially empty sella. The cerebellar tonsils are in normal position. The cerebellum is unremarkable. Occipital calvarial arachnoid granulations; unchanged from prior imaging. The orbits and globes are unremarkable. Layering fluid within the left sphenoid sinus. Otherwise, the paranasal sinuses are clear. Partial mucosal thickening of the mastoids. No worrisome calvarial lesi ons. IMPRESSION: No evidence of acute intracranial abnormalities. Additional findings as above.
[2025-01-21] MEDS ORDERED: LEVO200T7 PO (15:14)
[2025-01-21] MEDS ORDERED: ATOR40TA52 PO (16:33)
[2025-01-21] MEDS ORDERED: DEXTROSE (50%) 50ML SYRG IV PRN (16:45)
[2025-01-21] MEDS: ACCU-CHEK COMFORT CURVE STRIP VI SCH (18:10)
[2025-01-21] MEDS: InsuLIN REG 1unit/0.01ml Soln (100units/ml) SC SCH ×2 (18:10→22:54)
[2025-01-21 19:55] VITALS: PULSE 74; RESP 13; O2SAT 97
--- NOTE | 2025-01-21 20:34 | DVHINCON2 ---
Date of service: Jan 21, 2025 Referring Physician Catarina Reason for Consultation Stroke History of Present Illness Ms. Cerrato is a 74 years old right-handed female with a history of hypertension, diabetes, dyslipidemia, hypothyroidism the patient was admitted to the [facility] on 01/21/2025 with a chief complaint of pain in the right eye and year, at this time, she is alert and fully oriented, she provided the following history with our bilingual staff help I saw her on 07/17/2023 for aphasia, right-sided weakness (MRI negative) Since 01/20/2025 afternoon, he has pain in the left ear, left eye, he also feels dry in the lip, otherwise he denies paresthesia/numbness in the face, weakness numbness in the extremities. He denies weakness numbness in the extremities Urinalysis, 01/21/2025: Unremarkable CBC, 01/21/2025: Unremarkable BMP, 01/21/2025: Unremarkable HbA1c, 07/14/2023: 7.5 TG/CHO L/LDL/HDL, 07/14/2023: 222/139/74/44 Carotid Doppler, 07/14/2023: Elevated flow velocity in the right external carotid artery MRI head, 07/16/2023: 1. No acute intracranial process identified. 2. Moderate right and trace left mastoid effusions MRI headache, 01/21/2025: No evidence of acute intracranial abnormalities. Additional findings as above. Past Medical History Hypertension, diabetes, dyslipidemia, hypothyroidism Past Surgical History Cholecystectomy, hysterectomy Family History: Hypertension G8 FATHER Family History Hypertension Social History She is a nontobacco smoker, she denies a history of alcohol recreational substance abuse Allergies: Coded Allergies: NO KNOWN ALLERGIES (Unverified , 07/14/23) Home Meds Active Scripts Prochlorperazine Maleate (Compazine) 10 Mg Tb, 1 TAB PO Q8HP PRN for 4 Days, #12 TAB 3 Refills Prov:BUD NAIR MD 08/17/23 Sertraline Hcl (Zoloft) 25 Mg Tab, 1 TAB PO DAILY, #90 TAB 2 Refills Prov:PHYLLIS MILLARD MD 07/18/23 Lorazepam (ATIVAN TABLET) 0.5 Mg Tb, 1 TAB PO TID, #90 TAB Prov:PHYLLIS MILLARD MD 07/18/23 Reported Medications Atorvastatin Calcium (ATORVASTATIN CALCIUM) 40 Mg Tab, 1 TAB PO HS 01/21/25 Levothyroxine Sodium (Levothyroxine Sodium) 200 Mcg Tab, 1 TAB PO DAILY 01/21/25 Benazepril Hcl (Benazepril Hcl) 20 Mg Tab, 20 MG PO DAILY for 30 Days, MG 07/16/23 Aspirin (Aspir-Low) 81 Mg Tab, 81 MG PO DAILY for 30 Days, MG 07/16/23 Rosuvastatin Calcium (Crestor) 20 Mg Tab, 1 TAB PO DAILY, #30 TAB 5 Refills 07/16/23 Metformin Hydrochloride (Metformin Hcl) 850 Mg Tab, 850 MG PO for 30 Days, MG 07/16/23 Discontinued Scripts Cefdinir (Cefdinir) 300 Mg Cap, 1 CAP PO BID for 5 Days, #10 CAP Prov:CHICA GALINDO NP 12/31/24 Diphenhydramine Hcl (BENADRYL CAPSULE) 25 Mg Cp, 25 MG PO Q8HP PRN for 4 Days, #12 CAP Prov:BUD NAIR MD 08/17/23 Current Medications Current Medications Medications (Trade) Dose Ordered Sig/Dafne Route PRN Reason Start Time Stop Time Status Last Admin Acetaminophen/ Hydrocodone Bitart (Lewis 5/325MG Tab) 1 tab Q4HP PRN PO MODERATE PAIN (4-6 PAIN SCALE) 01/21/25 12:30 01/21/25 12:45 DC Ondansetron HCl (Zofran) 4 mg Q4HP PRN IV NAUSEA / VOMITING 01/21/25 12:30 01/21/25 12:45 DC Docusate Sodium (Colace Capsule) 100 mg BIDPRN PRN PO FOR CONSTIPATION 01/21/25 12:30 01/21/25 12:45 DC Acetaminophen (Tylenol Tablet) 650 mg Q6HP PRN PO PAIN SCALE 1-3 OR TEMP>100.4 01/21/25 12:30 01/21/25 12:45 DC Nitroglycerin (Ntrostat Sublingual) 0.4 mg Q5MINP PRN SL FOR CHEST PAIN 01/21/25 12:30 01/21/25 12:45 DC Morphine Sulfate 2 mg Q30M PRN IV FOR CHEST PAIN 01/21/25 12:30 01/21/25 12:45 DC Ondansetron HCl (Zofran) 4 mg Q4HP PRN IV NAUSEA / VOMITING 01/21/25 12:45 Morphine Sulfate 2 mg Q30M PRN IV FOR CHEST PAIN 01/21/25 12:45 Acetaminophen/ Hydrocodone Bitart (Lewis 5/325MG Tab) 1 tab Q4HP PRN PO MODERATE PAIN (4-6 PAIN SCALE) 01/21/25 12:45 01/21/25 14:15 Docusate Sodium (Colace Capsule) 100 mg BIDPRN PRN PO FOR CONSTIPATION 01/21/25 12:45 Acetaminophen (Tylenol Tablet) 650 mg Q6HP PRN PO PAIN SCALE 1-3 OR TEMP>100.4 01/21/25 12:45 Nitroglycerin (Ntrostat Sublingual) 0.4 mg Q5MINP PRN SL FOR CHEST PAIN 01/21/25 12:45 Aspirin (Ecotrin Enteric Coated Tablet) 81 mg DAILY PO 01/22/25 10:00 Patient Own Medication 20 mg DAILY PO 01/22/25 10:00 UNV Patient Own Medication 1 tab DAILY PO 01/22/25 10:00 UNV Levothyroxine Sodium (Synthroid Tablet) 200 mcg QAM PO 01/22/25 07:00 Benazepril HCl (Lotensin Tablet) 20 mg DAILY PO 01/22/25 10:00 Diagnostic Test (Pha) (Accu-Chek Comfort Curve T) 1 strip ACHS 01/21/25 17:00 01/21/25 18:10 Insulin Human Regular (InsuLIN R) HS SC 01/21/25 22:00 Insulin Human Regular (InsuLIN R) AC SC 01/21/25 17:00 Dextrose 50 ml UD PRN IV Blood Sugar LESS THAN 60 01/21/25 16:45 Patient Own Medication 1 tab HS PO 01/21/25 22:00 UNV Atorvastatin Calcium (Lipitor) 40 mg HS PO 01/21/25 22:00 Review of Systems As above, the other systems are negative Vital Signs Vital Signs Date Time Temp Pulse Resp B/P (MAP) Pulse Ox O2 Delivery O2 Flow Rate FiO2 01/21/25 19:55 98.1 74 13 144/63 (90) 97 98.1 01/21/25 13:15 Room Air* 0 21 Physical Exam GENERAL EXAM: General: the patient is well developed and nourished. No acute distress. HEENT: Normocephalic, neck is supple, no carotid bruits. No mass. No tenderness in the muscles process, arouse year, no skin rashes RESPIRATORY: Normal respiratory effort with symmetrical lung expansion. Lungs clear to auscultation. CARDIOVASCULAR: Regular rate and rhythm with no murmurs. S1, S2. ABDOMEN: Soft, nontender, normal bowel sound NEUROLOGICAL: MENTAL STATUS: Awake and alert. Oriented to person, place, time and general circumstances. Able to give personal history. SPEECH, LANGUAGE, HIGHER CORTICAL FUNCTION: no aphasia or dysathria. CRANIAL NERVES: #2: Intact visual santa to confrontation. The optic discs were sharp #3,4,6: Pupils are equal, round and reactive. EOMs full and conjugate #5: Facial sensation intact in all three divisions bilaterally. Mandibular strength intact. #7: Mild facial weakness of lower motor neuron pattern in the right face #8: Hearing grossly normal to voice. #9,10: Uvula and soft palate rise in the midline. Swallow and voice are normal. #11: Trapezius and sternomastoid strength intact bilaterally. #12: Tongue midline. No fasciculations or atrophy. SENSATION: Sensation to touch and pinprick is normal. MOTOR: Normal tone in the upper and lower extremity. Normal muscle bulk. No fasciculations. No abnormal movements or posturing. Muscle strength of the major groups in the extremities is 5/5 with questionable right leg drift. REFLEXES: Deep tendon reflexes normal and symmetrical. No pathological reflexes. CEREBELLAR/COORDINATION: Finger to nose is normal bilaterally. GAIT/STATION: deferred Labs/Diagnostic Data Labs Test 01/21/25 18:08 01/21/25 09:16 01/21/25 09:07 Range/Units POC Glucose 129 H 70-106 mg/dl White Blood Count 5.0 4.4-10.8 10^3/uL Red Blood Count 4.39 4.0-5.20 10^6/uL Hemoglobin 13.7 12.2-16.2 g/dL Hematocrit 39.8 36.0-46.0 % Mean Corpuscular Volume 90.8 80.0-100.0 fL Mean Corpuscular Hemoglobin 31.2 28.0-32.0 pg Mean Corpuscular Hemoglobin Concent 34.4 32.0-36.0 g/dL Red Cell Distribution Width 14.3 11.8-14.3 % Platelet Count 353 140-450 10^3/uL Mean Platelet Volume 6.9 6.9-10.8 fL Neutrophils (%) (Auto) 57.4 37.0-80.0 % Lymphocytes (%) (Auto) 31.1 10.0-50.0 % Monocytes (%) (Auto) 9.6 0.0-12.0 % Eosinophils (%) (Auto) 1.6 0.0-7.0 % Basophils (%) (Auto) 0.3 0.0-2.0 % Neutrophils # (Auto) 2.9 1.6-8.6 10 ^3/uL Lymphocytes # (Auto) 1.6 0.4-5.4 10 ^3/uL Monocytes # (Auto) 0.5 0-1.3 10 ^3/uL Eosinophils # (Auto) 0.1 0-0.8 10 ^3/uL Basophils # (Auto) 0 0-0.2 10 ^3/uL Nucleated Red Blood Cells 0.0 % Sodium Level 140 136-145 mmol/L Potassium Level 4.3 3.5-5.1 mmol/L Chloride Level 104 98-107 mmol/L Carbon Dioxide Level 27 20-31 mmol/L Anion Gap 9 5-15 Blood Urea Nitrogen 13 9-23 mg/dL Creatinine 0.84 0.550-1.02 mg/dL Glomerular Filtration Rate Calc 72 >90 mL/min BUN/Creatinine Ratio 15.5 10.0-20.0 Serum Glucose 112 H 74-106 mg/dL Calcium Level 9.8 8.7-10.4 mg/dL Troponin I High Sensitivity < 3 L </=34 ng/L Urine Color Light-yellow Yellow Urine Clarity Clear Clear Urine pH 6.5 5.0-9.0 Urine Specific [place] 1.009 1.001-1.035 Urine Protein Negative Negative Urine Ketones Negative Negative Urine Blood Negative Negative /uL Urine Nitrite Negative Negative Urine Bilirubin Negative Negative Urine Urobilinogen Normal Negative mg/dL Urine Leukocyte Esterase Negative Negative /uL Urine RBC 1 0 - 4 /hpf Urine Microscopic WBC < 1 0-5 /HPF Urine Squamous Epithelial Cells None seen <5 /hpf Urine Bacteria None seen None Seen /hpf Urine Glucose Normal Normal mg/dL Assessment Acute pain in the right eye, ear, mild right facial weakness of lower motor neuron part, questionable right leg drift Rizvi's palsy Acute stroke Other etiology Plan/Recommendation Monitoring Supportive treatment Telemetry Lipitor profile UDS MRI brain Carotid Doppler Echocardiogram Aspirin 81 mg daily Lipitor 40 mg daily More recommendation per clinical course Prognosis: Poor This medical document was created using an electronic medical record system with [email or web address] dictation system. Although this document has been carefully reviewed, there may still be some phonetic and typographical errors. These ar eas are purely typographical due to imperfections of the software programs, and do not reflect any compromise in the patient's medical care. Plan discussed with: Patient, Other KELECHI BERGMAN MD Jan 21, 2025 20:34
[2025-01-21] MEDS ORDERED: LORazepam 2MG/ML-1ML VIAL IV PRN (21:30)
[2025-01-21 21:46] LABS: Amphetamine Screen, Urine Neg (NEGATIVE); Barbiturate Scree,Urine Neg (NEGATIVE); Benzodiazephine Screen, Urine Neg (NEGATIVE); Cannabinoid Screen, Urine Neg (NEGATIVE); Cocaine Screen, Urine Neg (NEGATIVE); Opiate Scree,Urine Neg (NEGATIVE); Phencyclidine Screen, Urine Neg (NEGATIVE)
[2025-01-21 21:48] LABS: Triglycerides 283 mg/dL (< 150)
[2025-01-21 21:49] LABS: Cholesterol 223 mg/dL (< 200); HDL Cholesterol 44 mg/dL (40-59)
[2025-01-21 21:57] VITALS: PULSE 63; RESP 17
[2025-01-21] MEDS ORDERED: PATIENTS OWN MEDICATION (Atorvastatin Calcium 1 TAB) PO SCH (22:00)
[2025-01-21] MEDS: ATORVASTATIN 20 MG TAB PO SCH (22:55)
[2025-01-21 23:45] VITALS: BP 128/57; PULSE 73; RESP 18; TEMP 97.7; O2SAT 96
--- NOTE | 2025-01-22 | DVH ---
Carotid Duplex Date: 01/21/2025 11:11 PM Clinical History: cva Comparison: US CAROTID DUPLX W COLOR DOP on DOS: 07/14/23 Technique: Duplex Doppler evaluation of the extracranial carotid and vertebral arteries including col or Doppler and spectral/pulsed waveform analysis was performed. Findings: PSV in the right CCA measures 55 cm/s. PSV in the right ICA measures 96 cm/s. The right ICA/CCA ratio is 1.7. PSV in the left CCA measures 71 cm/s. PSV in the left ICA measures 142 cm/s. The left ICA/CCA ratio i s 2.0 Both vertebral arteries demonstrate antegrade flow within normal limits. IMPRESSION: 1. 50-69% stenosis noted within the left carotid bulb and proximal ICA due to atherosclerotic plaque. 2. No hemodynamically significant stenosis within the right carotid vasculature. Atherosclerotic plaq ue is noted within the right carotid bulb
[2025-01-22 00:44] VITALS: PULSE 78
[2025-01-22 05:00] VITALS: BP 128/73; PULSE 64; RESP 20; TEMP 97.6; O2SAT 97
[2025-01-22] MEDS: LEVOTHYROXINE SODIUM 100 MCG TAB PO SCH (06:26)
[2025-01-22 06:42] LABS: Hematocrit 37.5 % (36.0-46.0); Hemoglobin 13.1 g/dL (12.2-16.2); Mean Corpuscular Hemoglobin 31.5 pg (28.0-32.0); Mean Corpuscular Volume 90.1 fL (80.0-100.0); Nucleated Red Blood Cells % 0.0 %
[2025-01-22 06:57] LABS: Alanine Aminotransferase 12 U/L (7-40); Albumin 4.2 g/dL (3.2-4.8); Alkaline Phosphatase 69 U/L (46-116); Anion Gap 11 (5-15); BUN/Creatinine Ratio 19.5 (10.0-20.0); Blood Urea Nitrogen 16 mg/dL (9-23); Calcium 9.8 mg/dL (8.7-10.4); Carbon Dioxide 25 mmol/L (20-31); Chloride 105 mmol/L (98-107); Glucose 97 mg/dL (74-106); Potassium 3.9 mmol/L (3.5-5.1); Sodium 141 mmol/L (136-145); Total Protein 6.7 g/dL (5.7-8.2)
[2025-01-22 06:58] LABS: Bilirubin, Total 0.6 mg/dL (0.2-1.0)
[2025-01-22 07:45] VITALS: PULSE 66
[2025-01-22] MEDS: ASPirin-EC 81 mg tab PO SCH (08:50)
[2025-01-22] MEDS: BENAZEPRIL HCL 10 MG TAB PO SCH (08:51)
[2025-01-22 09:00] VITALS: BP 140/86; PULSE 69; RESP 18; TEMP 98.2; O2SAT 96
[2025-01-22] MEDS ORDERED: PATIENTS OWN MEDICATION (Levothyroxine Sodium 1 TAB) PO SCH (10:00)
[2025-01-22] MEDS ORDERED: PATIENTS OWN MEDICATION (Benazepril Hcl 20 MG) PO SCH (10:00)
[2025-01-22] MEDS ORDERED: METH4PAK PO (11:58)
--- NOTE | 2025-01-22 17:20 | DVHDSRES ---
Discharge Summary Date of Admission Resident Creating Document: SHAYLA CLINE RESIDENT Jan 21, 2025 at 12:23 Date of Discharge: Jan 22, 2025 Admitting Diagnosis Facial Weakness Wounds: No wounds Labs/Diagnostic Data: Laboratory Results Test 01/22/25 11:26 01/22/25 05:17 01/21/25 09:16 01/21/25 09:07 POC Glucose 104 mg/dl (70-106) White Blood Count 7.6 10^3/uL (4.4-10.8) Red Blood Count 4.16 10^6/uL (4.0-5.20) Hemoglobin 13.1 g/dL (12.2-16.2) Hematocrit 37.5 % (36.0-46.0) Mean Corpuscular Volume 90.1 fL (80.0-100.0) Mean Corpuscular Hemoglobin 31.5 pg (28.0-32.0) Mean Corpuscular Hemoglobin Concent 35.0 g/dL (32.0-36.0) Red Cell Distribution Width 13.9 % (11.8-14.3) Platelet Count 336 10^3/uL (140-450) Mean Platelet Volume 7.0 fL (6.9-10.8) Neutrophils (%) (Auto) 64.1 % (37.0-80.0) Lymphocytes (%) (Auto) 26.4 % (10.0-50.0) Monocytes (%) (Auto) 8.8 % (0.0-12.0) Eosinophils (%) (Auto) 0.5 % (0.0-7.0) Basophils (%) (Auto) 0.2 % (0.0-2.0) Neutrophils # (Auto) 4.9 10 ^3/uL (1.6-8.6) Lymphocytes # (Auto) 2.0 10 ^3/uL (0.4-5.4) Monocytes # (Auto) 0.7 10 ^3/uL (0-1.3) Eosinophils # (Auto) 0 10 ^3/uL (0-0.8) Basophils # (Auto) 0 10 ^3/uL (0-0.2) Nucleated Red Blood Cells 0.0 % Sodium Level 141 mmol/L (136-145) Potassium Level 3.9 mmol/L (3.5-5.1) Chloride Level 105 mmol/L (98-107) Carbon Dioxide Level 25 mmol/L (20-31) Anion Gap 11 (5-15) Blood Urea Nitrogen 16 mg/dL (9-23) Creatinine 0.82 mg/dL (0.550-1.02) Glomerular Filtration Rate Calc 75 mL/min (>90) BUN/Creatinine Ratio 19.5 (10.0-20.0) Serum Glucose 97 mg/dL (74-106) Calcium Level 9.8 mg/dL (8.7-10.4) Total Bilirubin 0.6 mg/dL (0.2-1.0) Aspartate Amino Transferase (AST) 16 U/L (13-40) Alanine Aminotransferase (ALT) 12 U/L (7-40) Alkaline Phosphatase 69 U/L (46-116) Total Protein 6.7 g/dL (5.7-8.2) Albumin 4.2 g/dL (3.2-4.8) Troponin I High Sensitivity < 3 ng/L (</=34) Triglycerides Level 283 mg/dL (< 150) Cholesterol Level 223 mg/dL (< 200) LDL Cholesterol 148 mg/dL (< 100) HDL Cholesterol 44 mg/dL (40-59) Urine Color Light-yellow (Yellow) Urine Clarity Clear (Clear) Urine pH 6.5 (5.0-9.0) Urine Specific [place] 1.009 (1.001-1.035) Urine Protein Negative (Negative) Urine Ketones Negative (Negative) Urine Blood Negative /uL (Negative) Urine Nitrite Negative (Negative) Urine Bilirubin Negative (Negative) Urine Urobilinogen Normal mg/dL (Negative) Urine Leukocyte Esterase Negative /uL (Negative) Urine RBC 1 /hpf (0 - 4) Urine Microscopic WBC < 1 /HPF (0-5) Urine Squamous Epithelial Cells None seen /hpf (<5) Urine Bacteria None seen /hpf (None Seen) Urine Glucose Normal mg/dL (Normal) Urine Opiates Screen Neg (NEGATIVE) Urine Fentanyl Screen Neg (NEGATIVE) Urine Barbiturates Screen Neg (NEGATIVE) Urine Phencyclidine Screen Neg (NEGATIVE) Urine Amphetamines Screen Neg (NEGATIVE) Urine Benzodiazepines Screen Neg (NEGATIVE) Urine Cocaine Screen Neg (NEGATIVE) Urine Cannabinoids Screen Neg (NEGATIVE) Other Laboratory Tests 01/22/25 05:17 Brief Hx & Hospital Course: Patient is a 74-year-old female with past 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 Patient states that she was drinking a cup of water at home when she began to feel a tingling sensation in her right eye, heard tinnitus in her right ear, and felt numbness on the right side of her lips. She denied dysphagia, changes in vision, weakness in her limbs, speech slurring, confusion, or loss of consciousness. On evaluation in the ED, initial labs show WBC 5.0, Hb 13.7, PLT 353, Sodium 140, potassium 4.3, BUN 13, and creatinine 0.84. UA with no significant findings and UDS negative for any substances. Head CT showed no evidence of acute intracranial hemorrhage, wit coritical deformities of posterior aspects of both mastoids. Due to suspicion of CVA, patient was admitted for further work up. She was seen by neurology who stated that patient had mild right facial weakness in lower motor neuron part, stated possibility of Rzivi's palsy, and recommend MRI brain and carotid doppler study. MRI brain showed no acute intracranial abnormalities. Carotid doppler showed 50-69% stenosis noted within the left carotid bulb and proximal ICA due to atherosclerotic plaque, no hemodynamically significant stenosis within the right carotid vasculature. On evaluation today, the patient was found oriented, stating she felt well, slept well, was tolerating oral diet, and was ambulating without difficulty. Follow up labs were within range and vitals have remained stable. The patient is considered stable for discharge home with corticosteroids and eye drops and follow up appointments with the discharge clinic and neurology. Medication regimen was explained to her, and recommendations were given. Physical exam: General: The patient alert and oriented in person place and time. Patient following commands HEENT: Normocephalic, atraumatic, moist mucous membrane Respiratory/pulmonary: Clear lungs bilaterally, vesicular murmurs present in almost all lung santa, no associated crackles or wheezes. Abdomen: Abdomen nondistended, there is no pain to palpation in any of the abdominal quadrants, no palpable masses. Extremities: no peripheral edema present at the lower extremities. Peripheral pulses 3+ radial right, 3+ radials soft. 3+ dorsalis pedis right. 3+ dorsalis pedis left Skin: No rashes or pruritus Neurological: Intact cranial nerves with no focal neurologic deficits, mild right facial weakness, less forehead wrinkling when compared to left, slower right eye blinking when compared to left, suggestive of lower motor neuron defect Case discussed with Dr. Darby. Goals of care discussed with the patient who states she understands and agrees. Consults/Reason for consult Neurology was consulted due to suspicion of CVA Operations or Procedures PROCEDURE(s): HWOCT - HEAD WITHOUT CONTRAST REASON: tia ORDER NUMBER(s): [id number], ACCESSION NUMBER(s): [id number] CLINICAL INFORMATION: Transient ischemic attack. TECHNIQUE: Axial imaging was obtained through the brain without contrast. Coronal and sagittal reformatted images were obtained, reviewed, and stored. Images were reviewed in brain and bone windows. All CT scans at this medical facility are performed using dose modulation techniques as appropriate to a performed exam including the following: Automated exposure control was utilized; adjustment of the MA and/or KV according to patient size; and use of iterative reconstruction technique. CTDIvol = 52.29 mGy DLP = 924.88 mGy-cm COMPARISON: CT HEAD WITHOUT CONTRAST on DOS: 08/25/23, CT STROKE CTH on DOS: 08/17/23, CT STROKE CTH on DOS: 07/14/23 FINDINGS: There is no acute intracranial hemorrhage. No mass effect or midline shift. Empty sella visualized. The ventricles and sulci are within normal limits in size for age. Basal cisterns are patent. Prominent arachnoid granulations are seen in the calvarium, similar to prior exams. [id number] mucosal thickening of the paranasal sinuses. There is partial opacification of the mastoid air cells bilaterally, with cortical deformity of the posterior cortices of both mastoids, which is also seen on prior exams without significant change. IMPRESSION: 1. No CT evidence of acute intracranial hemorrhage. 2. Partial opacification of the mastoid air cells, most prominent posteriorly. There are cortical deformities of the posterior aspects of both mastoids, may be sequela of prior erosive changes, similar in appearance compared to the prior exam. Correlate with clinical findings. If clinically indicated, dedicated imaging of the temporal bones could be considered to further characterize. 3. Additional nonacute findings as described above. EXAM: MRI BRAIN HEAD WO CONTRAST CLINICAL HISTORY: Possible CVA COMPARISON: MRI BRAIN HEAD WO CONTRAST on DOS: 07/16/23 TECHNIQUE: Multiplanar, multisequence magnetic resonance imaging of the brain was performed without intravenous contrast. FINDINGS: Normal brain volume and formation. T2 /FLAIR hyperintense focus within the right aguilar radiata areas of chronic infarct versus chronic small-vessel ischemic changes. No hemorrhages, masses, mass effect, midline shift, herniation or cytotoxic edema following a large vascular territory. No intra-axial or extra-axial fluid collections. No evidence of hydrocephalus. The basal cisterns are patent. The vascular flow voids are maintained. Bilateral subinsular region prominent perivascular spaces. Nonspecific partially empty sella. The cerebellar tonsils are in normal position. The cerebellum is unremarkable. Occipital calvarial arachnoid granulations; unchanged from prior imaging. The orbits and globes are unremarkable. Layering fluid within the left sphenoid sinus. Otherwise, the paranasal sinuses are clear. Partial mucosal thickening of the mastoids. No worrisome calvarial lesions. IMPRESSION: No evidence of acute intracranial abnormalities. Additional findings as above. Carotid Duplex Date: 01/21/2025 11:11 PM Clinical History: cva Comparison: US CAROTID DUPLX W COLOR DOP on DOS: 07/14/23 Technique: Duplex Doppler evaluation of the extracranial carotid and vertebral arteries including color Doppler and spectral/pulsed waveform analysis was performed. Findings: PSV in the right CCA measures 55 cm/s. PSV in the right ICA measures 96 cm/s. The right ICA/CCA ratio is 1.7. PSV in the left CCA measures 71 cm/s. PSV in the left ICA measures 142 cm/s. The left ICA/CCA ratio is 2.0 Both vertebral arteries demonstrate antegrade flow within normal limits. IMPRESSION: 1. 50-69% stenosis noted within the left carotid bulb and proximal ICA due to atherosclerotic plaque. 2. No hemodynamically significant stenosis within the right carotid vasculature. 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 Follow up with Dr. Quintanilla in 1-2 weeks. Medications: Prednisolone Eye drops Home medications Scheduled Aspirin (Aspir-Low), 81 MG PO DAILY, (Reported) Atorvastatin Calcium (Atorvastatin Calcium), 1 TAB PO HS, (Reported) Benazepril Hcl (Benazepril Hcl), 20 MG PO DAILY, (Reported) Levothyroxine Sodium (Levothyroxine Sodium), 1 TAB PO DAILY, (Reported) Lorazepam (Ativan Tablet), 1 TAB PO TID Methylprednisolone (Medrol Dosepak), 4 MG PO UD Sertraline Hcl (Zoloft), 1 TAB PO DAILY Scheduled PRN Prochlorperazine Maleate (Compazine), 1 TAB PO Q8HP PRN Miscellaneous Medications Metformin Hydrochloride (Metformin Hcl), 850 MG PO, (Reported) Discontinued Medications Cefdinir (Cefdinir), 1 CAP PO BID Diphenhydramine Hcl (Benadryl Capsule), 25 MG PO Q8HP PRN Rosuvastatin Calcium (Crestor), 1 TAB PO DAILY, (Reported) Discharge Statement: "Patient was advised to return to the ER or call 911 if any headaches, dizziness, shortness of breath, chest pain, abdominal pain, bleeding, fevers, or worsening of medical condition. Patient was counseled about treatment plan, medications, possible side effects, patientverbalized understanding. All questions were answered to the best of my ability. This discharge took greater then 30 minutes in planning, reviewing documentation, counseling the patient, and discussing with other team members." ASSESSMENT ASSESSMENT Assessment Rizvi's Palsy SHAYLA CLINE RESIDENT Jan 22, 2025 17:20
--- NOTE | 2025-01-22 21:19 | DVHSR ---
APPROVED REPORT EXAM: Two-dimensional and M-mode echocardiogram with Doppler and color Doppler. Blood Pressure: 128/73 mmHg INDICATION CVA/TIA: RISK FACTORS Height: 5'1", Weight: 143 DIMENSIONS LVDd3.9 (3.8-5.7cm)LA (2D)3.7 (1.9-4.0cm)Aortic Root2.8 (2.0-3.7cm) LVDs2.2 (2.5-4.0cm)LA (MM) (1.9-4.0cm)Aortic Cusp Exc1.6 (1.5-2.0cm) EF (%) 73.0 (55-70%)Rt. Atrium4.4 (1.9-4.0cm)Asc. Aorta2.7 cm IVSd0.9 (0.7-1.1cm)RV (D)3.1 (1.8-2.4cm) PWd1.0 (0.7-1.1cm) Mitral Valve MitralMitral Stenosis E wave0.76m/sMV Mean GR.mmHg A wave0.93m/sMV Peak GR.mmHg E/A ratio0.82D MVAcm2 DECEL [id number] 1/2 [place] Aortic Valve Aortic ValveAortic Stenosis V11.37m/Steph Mean GR.5mmHg V21.42m/Steph Peak GR.8mmHg LVOT Diameter2.0 (1.8-2.4cm)Doppler AVA3.03cm2 Pulmonic Valve V20.80m/s Tricuspid Valve TR Velocity2.14m/s [id number] Other Information Quality : Technically LimitedRhythm : Technically limited study due to body habitus. Conclusion MILD LVH AND MILD LV DIASTOLIC DYSFUNCTION LV EF IS 60% NORMAL VALVES SLIGHTLY DILATED RV AND RA NO EFFUSION NORMAL RVSP AND IS 21 MM OF HG
== END 2025-01-22 13:15 | disposition home or self-care (01) | DRG 74 ==
LOC: ER 08:30 → OVERFLOW 12:23 → ER 12:26 → TELE-WESTW 21:40
PROVIDERS: ADMIT Student in an Organized Health Care Education/Training Program; ATTEND Student in an Organized Health Care Education/Training Program
DX: G51.0 Bell's palsy (principal); I10 Essential (primary) hypertension; E03.9 Hypothyroidism, unspecified; E11.9 Type 2 diabetes mellitus without complications; E78.5 Hyperlipidemia, unspecified; H57.11 Ocular pain, right eye; F17.200 Nicotine dependence, unspecified, uncomplicated; Z82.49 Family history of ischemic heart disease and other diseases of the circulatory system; Z90.710 Acquired absence of both cervix and uterus; Z90.49 Acquired absence of other specified parts of digestive tract; Z79.4 Long term (current) use of insulin; Z79.82 Long term (current) use of aspirin; Z79.899 Other long term (current) drug therapy; Z79.84 Long term (current) use of oral hypoglycemic drugs
CPT/HCPCS: 36415; 70450; 70551; 80048; 80053; 80061; 80307; 81001; 82962; 84484; 85025; 87081; 93005; 93306; 93886; 96372; 99291; 99292; G0378; J1815